=== PATIENT | female | born 1985 | race Caucasian/White ===

== ENCOUNTER 2019-09-17 13:41 | Emergency (ER) | payer OTHER, SELFPAY ==
[2019-09-17 13:50] VITALS: BP 119/76; PULSE 78; RESP 20; TEMP 36.3; O2SAT 98
--- NOTE | 2019-09-17 14:00 | ED.GENADULT ---
HPI - General Adult General Chief complaint: Ear Stated complaint: Right Ear Pain Time Seen by Provider: 09/17/19 14:00 Source: patient and RN notes reviewed Mode of arrival: ambulatory Limitations: no limitations History of Present Illness HPI narrative: 34-year-old female presents to [facility] care with complaints of pain to her right ear since Tuesday along with some discomfort to the right side of her face. Patient denies any fevers chills or sweats, denies any sore throat nasal congestion or cough. Patient states throbbing type of pain to her right ear radiating into her neck denies any drainage from the right ear. Patient states that she put some peroxide in her right ear. MD complaint: ear pain right ear Onset (ago): day(s) (3) Location: head (Ears) and neck Radiation: neck Severity: severe Severity scale (1-10): 8 Quality: other (throbbing) Pain Consistency: constant Relieving factors: none Exacerbating factors: none Associated symptoms: other (radiation of pain to right neck) Treatments prior to arrival: other (peroxide in ear) Related Data Home Medications Medication Instructions Recorded Confirmed omeprazole 40 mg PO DAILY 09/17/19 09/17/19 topiramate 25 mg PO BID PRN 09/17/19 09/17/19 Allergies Allergy/AdvReac Type Severity Reaction Status Date / Time morphine Allergy Intermediate Rash Verified 09/17/19 14:18 naproxen AdvReac Intermediate Nausea and Verified 09/17/19 14:18 Vomiting Review of Systems Review of Systems: Narrative: CONSTITUTIONAL: Denies fever, chills, or sweats. EYES: Denies visual changes, redness, or discharge. ENT: Denies rhinorrhea, congestion, sore throat, positive right ear otalgia. CARDIOVASCULAR: Denies chest pain, palpitations, or edema. RESPIRATORY: Denies cough or dyspnea. GASTROINTESTINAL: Denies abdominal pain, nausea, vomiting, or diarrhea. GENITOURINARY: Denies dysuria or hematuria. SKIN: Denies rash or itching. MUSCULOSKELETAL: Denies back pain, joint pain, or myalgia. NEUROLOGIC: Denies headache, numbness, or weakness. PSYCHIATRIC: Denies anxiety or depression. All systems reviewed & are unremarkable except as noted in HPI and below PMFSH Past Medical History Medical History (Updated 09/19/19 @ 15:30 by Jennifer Valadez NP) Gastric ulcer Migraines Surgical History Surgical History (Updated 09/17/19 @ 14:26 by Jennifer Valadez NP) History of hysterectomy for cancer History of tubal ligation Hx of cholecystectomy Social History Social History (Updated 09/17/19 @ 14:25 by Jennifer Valadez NP) Smoking status: Never smoker Living arrangements: with family Gender identity (if verbalized by the patient): Female Comments At time of signature, agree with nursing past medical, surgical, social history. There is no relevant family history pertinent to the presenting complaint Exam Narrative: Exam Narrative: GENERAL: Well-appearing, well-nourished, and in no acute distress. HEAD: Normocephalic, atraumatic. EYES: PERRLA and EOMI. ENT: Nares clear, no rhinorrhea or epistaxis. Mucous membranes moist.TM normal right ear with good light reflex, ear canal red and swollen with no drainage noted, left TM normal with good light reflex, throat pink no pain or redness. NECK: Supple.no lymphadenopathy CHEST: Clear to auscultation. No respiratory distress.KARYN@ 98% on room air. HEART: Regular rate and rhythm. No murmur heard. Normal peripheral pulses. ABDOMEN: Soft, nontender, nondistended, normal active bowel sounds. EXTREMITIES: Normal range of motion. No edema. SKIN: Warm, dry, no rash. NEURO: No focal deficits. Alert and oriented x3. Course Vital Signs Vital signs: Vital Signs Temperature 36.3 C L 09/17/19 13:50 Pulse Rate 78 09/17/19 13:50 Respiratory Rate 20 09/17/19 13:50 Blood Pressure 119/76 09/17/19 13:50 Pulse Oximetry 98 09/17/19 13:50 Temperature 36.3 C L 09/17/19 13:50 Pulse Rate 78 09/17/19 13:50 Respiratory Rate
== END 2019-09-17 14:20 | disposition home or self-care (01) ==
PROVIDERS: Emergency Provider Registered Nurse
DX: H60.501 Unspecified acute noninfective otitis externa, right ear (principal); K21.9 Gastro-esophageal reflux disease without esophagitis; Z85.42 Personal history of malignant neoplasm of other parts of uterus
CPT/HCPCS: 99213; G0463

== ENCOUNTER 2020-03-06 16:10 | Emergency (ER) | payer OTHER, SELFPAY ==
[2020-03-06 16:15] VITALS: BP 137/74; PULSE 62; RESP 18; TEMP 36.8; O2SAT 100
--- NOTE | 2020-03-06 16:25 | ED.GENADULT ---
HPI - General Adult General Chief complaint: Eye Problems Stated complaint: left eye pain Time Seen by Provider: 03/06/20 16:30 Source: patient and RN notes reviewed Mode of arrival: ambulatory Limitations: no limitations History of Present Illness HPI narrative: 34-year-old female presents with complains of left eye pain, photophobia, and scratchy eye sensation to inner LT eye area, since she awaken this morning. Unknown injury. No treatment. Mild redness, no drainage. Symptoms worsening throughout the day. Exacerbating factor light. Relieving factors is closing eyes. Denies blurred vision, double vision, or pain of eye with movement. Denies wearing glasses or contact lenses, had Lasik eye surgery in 2014. The patient reports she have not been diagnosed with COVID-19. The patient reports she is not waiting for the results of a COVID-19 lab test. The patient reports she do not have fever, chills, weakness, fatigue, myalgia, or facial swelling. The patient reports she do not have a new or worsening cough or shortness of breath. Denies chest pain. The patient reports she do not have any rhinorrhea, congestion, sore throat, nausea, vomiting, abdominal pain, and diarrhea. Tolerating po intake well. Denies recent traveling. Denies concerns for COVID-19 or exposures been home with limited outdoor exposure except for essential household needs and return home. At this time, patient is not suspected of having COVID-19. Some parts of this dictation were generated by voice recognition software and may contain typographical and/or grammatical inaccuracies. Related Data Home Medications Medication Instructions Recorded Confirmed omeprazole 40 mg PO DAILY 09/17/19 03/06/20 topiramate 25 mg PO BID PRN 09/17/19 03/06/20 Allergies Allergy/AdvReac Type Severity Reaction Status Date / Time morphine Allergy Intermediate Rash Verified 03/06/20 16:24 naproxen AdvReac Intermediate Nausea and Verified 03/06/20 16:24 Vomiting Review of Systems Review of Systems: Narrative: CONSTITUTIONAL: Denies fever, chills, sweats. EYES: Denies visual changes. Complains of LT eye pain, photophobia, and scratchy eye sensation to inner LT eye area. Denies discharge. ENT: Denies rhinorrhea, congestion, sore throat, otalgia. CARDIOVASCULAR: Denies chest pain, palpitations, edema. RESPIRATORY: Denies dyspnea, wheezing, cough. GASTROINTESTINAL: Denies abdominal pain, nausea, vomiting, diarrhea. GENITOURINARY: Denies dysuria, hematuria, abnormal discharge. SKIN: Denies rash or itching. MUSCULOSKELETAL: Denies acute back pain, joint pain, or myalgia. NEUROLOGIC: Denies numbness or focal weakness. PSYCHIATRIC: Denies anxiety or depression. All systems reviewed & are unremarkable except as noted in HPI and below PMFSH Past Medical History Medical History (Updated 03/08/20 @ 19:20 by MANDEEP Manley) Anxiety Depression Gastric ulcer History of gastroesophageal reflux (GERD) Hypertension Migraines Post traumatic stress disorder (PTSD) Surgical History Surgical History (Updated 03/08/20 @ 19:18 by MANDEEP Manley) H/O unilateral oophorectomy History of hysterectomy for cancer History of tubal ligation Hx of cholecystectomy Hx of LASIK Family History Family History (Updated 03/08/20 @ 19:34 by MANDEEP Manley) Father Hx of migraines Brain tumor (benign) Mother Alive and well Grandparent Hypertension Social History Social History (Updated 03/08/20 @ 19:36 by MANDEEP Manley) Smoking status: Never smoker Tobacco type: cigarettes Second hand tobacco smoke exposure: No Alcohol intake: never Substance use: never Living arrangements: with family Occupation/Education: unemployed Gender identity (if verbalized by the patient): Female Sexual Orientation (if Verbalized by the Patient): Straight or Heterosexual Comments At time of signature, I have reviewed and agree with nursing
== END 2020-03-06 16:47 | disposition home or self-care (01) ==
PROVIDERS: Emergency Provider Nurse Practitioner Family; PCP Nurse Practitioner Family
DX: S05.02XA Injury of conjunctiva and corneal abrasion without foreign body, left eye, initial encounter (principal); X58.XXXA Exposure to other specified factors, initial encounter; K21.9 Gastro-esophageal reflux disease without esophagitis; I10 Essential (primary) hypertension; Z85.42 Personal history of malignant neoplasm of other parts of uterus; Z90.711 Acquired absence of uterus with remaining cervical stump
CPT/HCPCS: 99213; A9270; G0463

== ENCOUNTER 2020-03-11 19:16 | Emergency (ER) | payer OTHER, SELFPAY ==
--- NOTE | ~2020-03-11 | XR_ITS ---
EXAMINATION: XR wrist RT min 3V DATE: 03/11/2020 19:40 INDICATION: Right wrist injury. TECHNIQUE: 4 views of right wrist were obtained. COMPARISON: None. FINDINGS: Bone alignment is normal. No fracture. Joint spaces are well maintained. IMPRESSION: 1. Normal right wrist. Reviewed, dictated and finalized at location A. IMPRESSION: 1. Normal right wrist.
--- NOTE | ~2020-03-11 | XR_ITS ---
EXAMINATION: XR hand RT min 3V DATE: 03/11/2020 19:41 INDICATION: Right hand injury. TECHNIQUE: 3 views of right hand were obtained. COMPARISON: None. FINDINGS: Bone alignment is normal. No fracture. Joint spaces are well maintained. IMPRESSION: 1. Normal right hand. Reviewed, dictated and finalized at location A. IMPRESSION: 1. Normal right hand.
[2020-03-11 19:20] VITALS: BP 137/67; PULSE 60; RESP 20; TEMP 36.7; O2SAT 100
--- NOTE | 2020-03-11 19:24 | ED.UPPEXIN ---
HPI - Extremity Injury (Upper) General Chief Complaint: Extremity Injury, Upper Stated Complaint: right hand fingers injury Time Seen by Provider: 03/11/20 19:24 Source: patient and RN notes reviewed History of Present Illness HPI narrative: Patient is a 34-year-old female who presents the urgent care with complaints of right arm/hand pain. Patient states that approximately 130 this afternoon a trailer fell onto her right arm/hand and has been causing her pain since then. Patient states that she has been elevating and icing but has had increased pain since the incident. Denies any use of [id number] medication for the pain. No other acute complaints or injuries. No acute distress noted. Patient aware of the plan of care. Some parts of this dictation were generated by voice recognition software and may contain typographical and/or grammatical inaccuracies. Related Data Home Medications Medication Instructions Recorded Confirmed omeprazole 40 mg PO DAILY 09/17/19 03/06/20 topiramate 25 mg PO BID PRN 09/17/19 03/06/20 Allergies Allergy/AdvReac Type Severity Reaction Status Date / Time morphine Allergy Intermediate Rash Verified 03/11/20 19:37 naproxen AdvReac Intermediate Nausea and Verified 03/11/20 19:37 Vomiting Review of Systems Review of Systems: Narrative: CONSTITUTIONAL: Denies fever, chills, or sweats. EYES: Denies visual changes, redness, or discharge. ENT: Denies rhinorrhea, congestion, sore throat, or otalgia. CARDIOVASCULAR: Denies chest pain, palpitations, or edema. RESPIRATORY: Denies cough or dyspnea. GASTROINTESTINAL: Denies abdominal pain, nausea, vomiting, or diarrhea. GENITOURINARY: Denies dysuria or hematuria. SKIN: Denies rash or itching. MUSCULOSKELETAL: Reports of right lower arm and wrist pain NEUROLOGIC: Denies headache, numbness, or weakness. All other systems reviewed are negative, except as documented in HPI. [facility] Past Medical History Medical History (Updated 03/11/20 @ 19:46 by MANDEEP Lima) Anxiety Depression Gastric ulcer History of gastroesophageal reflux (GERD) Hypertension Migraines Post traumatic stress disorder (PTSD) Surgical History Surgical History (Updated 03/08/20 @ 19:18 by MANDEEP Manley) H/O unilateral oophorectomy History of hysterectomy for cancer History of tubal ligation Hx of cholecystectomy Hx of LASIK Family History Family History (Updated 03/08/20 @ 19:34 by MANDEEP Manley) Father Hx of migraines Brain tumor (benign) Mother Alive and well Grandparent Hypertension Social History Social History (Updated 03/08/20 @ 19:36 by MANDEEP Manley) Smoking status: Never smoker Tobacco type: cigarettes Second hand tobacco smoke exposure: No Alcohol intake: never Substance use: never Gender identity (if verbalized by the patient): Female Comments At the time of my signature, I reviewed and agree with the nursing past medical, surgical, social, and family history. There is no relevant family history pertinent to the patient complaint. Exam Narrative: Exam Narrative: GENERAL: This is a well-nourished, well-developed patient, in no apparent distress. HEAD: normocephalic, atraumatic. EYES: PERRL. Sclera clear/white. Vision is grossly intact. EARS: External ears normal NOSE: External nose normal with no obvious nasal discharge, nares without redness, no rhinorrhea. THROAT: Mucous membranes moist NECK: Neck supple, SKIN: warm, intact with no suspicious lesions or rash, good texture and turgor. NEURO: awake, alert, and oriented to person, place and time. There were no obvious focal neurologic abnormalities. EXTREMITIES: Mild swelling with possible deformity noted to the right distal radius with moderate surrounding tenderness and mild ecchymosis. Range of motion not tested due to pain. Positive strong right radial pulse with capillary refill less than 2 seconds. Course Vital Signs Vit
== END 2020-03-11 19:50 | disposition home or self-care (01) ==
PROVIDERS: Emergency Provider Nurse Practitioner Family; PCP Nurse Practitioner Family
DX: S60.221A Contusion of right hand, initial encounter (principal); W20.8XXA Other cause of strike by thrown, projected or falling object, initial encounter; S60.211A Contusion of right wrist, initial encounter; K21.9 Gastro-esophageal reflux disease without esophagitis; I10 Essential (primary) hypertension; Z85.42 Personal history of malignant neoplasm of other parts of uterus
CPT/HCPCS: 73110; 73130; 99213; G0463

== ENCOUNTER 2023-04-01 15:57 | Emergency (ER) | payer OTHER, SELFPAY ==
--- NOTE | ~2023-04-01 | XR_ITS ---
EXAMINATION: XR chest 2V DATE: 04/01/2023 16:28 INDICATION: Hypoxia TECHNIQUE: frontal and lateral views of the chest were obtained. COMPARISON: None FINDINGS: The lungs are clear with no focal airspace opacities, pulmonary edema, pleural effusion or pneumothor ax. The cardiomediastinal silhouette is normal. Pectus carinatum. Cholecystectomy clips in the right upper quadrant. Nonspecific bowel gas pattern with a few gas-filled but not frankly dilated loops of bowel in the upper abdomen. IMPRESSION: 1. No acute cardiopulmonary disease. Reviewed, dictated and finalized at location A.
--- NOTE | 2023-04-01 16:03 | ED.GENADULT ---
HPI - General Adult General Chief complaint: Nausea/Vomiting/Diarrhea Stated complaint: Cough,Vomitting,Diarrhea Source: patient and RN notes reviewed History of Present Illness HPI narrative: 37 yo F presents to urgent care with complaints of N/V/D x 2 days. Pt states she has been unable to keep anything down. Pt states this started on Tuesday night but the diarrhea started today. Pt also reporting a cough since she was hospitalized with [facility] 1 month ago. Pt states the cough got worse Tuesday as well. Pt states she has had lower O2 Sats since this episode a month ago. Reports subjective fevers at home. Reports normally having SOB and states they don't know what is going on with her lungs and her hypoxia. Denies any chest pain, abdominal pain, or dysuria. Pt did take her zofran for the first time at noon today. Related Data Home Medications Medication Instructions Recorded Confirmed omeprazole 40 mg capsule,delayed 40 mg PO DAILY 09/17/19 03/11/20 release topiramate 25 mg tablet 25 mg PO BID PRN Migraine Headache 09/17/19 03/11/20 albuterol sulfate 2.5 mg/3 mL mg 04/01/23 (0.083 %) solution for nebulization albuterol sulfate 90 mcg/actuation inhalation 04/01/23 aerosol inhaler benzonatate 200 mg capsule mg PO 04/01/23 buspirone 7.5 mg tablet mg 04/01/23 citalopram 20 mg tablet mg 04/01/23 fluticasone 250 mcg-salmeterol 50 inhalation 04/01/23 mcg/dose blistr powdr for inhalation (Advair Diskus) metoprolol succinate 25 mg mg PO 04/01/23 tablet,extended release 24 hr tiotropium bromide 2.5 inhalation 04/01/23 mcg/actuation mist for inhalation (Spiriva Respimat) triamcinolone acetonide 0.1 % applic topical 04/01/23 topical cream Allergies Allergy/AdvReac Type Severity Reaction Status Date / Time morphine Allergy Intermediate Rash Verified 04/01/23 15:59 naproxen AdvReac Intermediate Nausea and Verified 04/01/23 15:59 Vomiting Review of Systems Review of Systems: Pertinent positives and pertinent negatives per HPI. [facility] Past Medical History Medical History (Updated 04/01/23 @ 16:48 by Karie Romero APRN) Anxiety Depression Gastric ulcer History of gastroesophageal reflux (GERD) Hypertension Migraines Post traumatic stress disorder (PTSD) Surgical History Surgical History (Updated 03/08/20 @ 19:18 by MANDEEP Manley) H/O unilateral oophorectomy History of hysterectomy for cancer History of tubal ligation Hx of cholecystectomy Hx of LASIK Family History Family History (Updated 03/08/20 @ 19:34 by MANDEEP Manley) Father Hx of migraines Brain tumor (benign) Mother Alive and well Grandparent Hypertension Social History Social History (Updated 03/08/20 @ 19:36 by MANDEEP Manley) Smoking status: Never smoker Tobacco type: cigarettes Second hand tobacco smoke exposure: No Alcohol intake: never Substance use: never Living arrangements: with family Occupation/Education: unemployed Gender identity (if verbalized by the patient): Female Sexual Orientation (if Verbalized by the Patient): Straight or Heterosexual Comments At the time of my signature, I reviewed and agree with the nursing past medical, surgical, social, and family history. There is no relevant family history pertinent to the patient complaint. Exam Narrative: GENERAL: This is a well-nourished, well-developed patient, in no apparent distress. HEAD: normocephalic, atraumatic. EYES: Sclera clear/white. Vision is grossly intact. EARS: External ears normal, auditory canals clear and without drainage, TMs normal without perforation. Hearing grossly intact. NOSE: External nose normal with no obvious nasal discharge, nares without redness, no rhinorrhea. THROAT: Mucous membranes moist, posterior pharynx clear. NECK: Neck supple, non-tender without lymphadenopathy, masses or thyromegaly. CARDIOVASCULAR: Regular rate and rhythm without mur
[2023-04-01 16:10] VITALS: BP 131/82; PULSE 97; RESP 20; TEMP 36.4; O2SAT 92
== END 2023-04-01 16:54 | disposition home or self-care (01) ==
PROVIDERS: Emergency Provider Nurse Practitioner Family
DX: K52.9 Noninfective gastroenteritis and colitis, unspecified (principal); R05.9 Cough, unspecified; I10 Essential (primary) hypertension; Z79.899 Other long term (current) drug therapy
CPT/HCPCS: 71046; 99213; G0463

== ENCOUNTER 2024-07-11 15:34 | Emergency (ER) | payer OTHER, SELFPAY ==
--- NOTE | ~2024-07-11 | XR_ITS ---
EXAMINATION: XR chest 2V DATE: 07/11/2024 16:25 INDICATION: Cough. TECHNIQUE: Frontal and lateral views of the chest were obtained. COMPARISON: Chest 2 views 04/01/2023 FINDINGS: There is no pneumonia, pleural effusion, or pneumothorax. The heart size is normal. Pectus carinatum is noted. Surgical clips in the right upper quadrant are likely from cholecystectomy. IMPRESSION: 1. No acute cardiopulmonary disease. Reviewed, dictated and finalized at location A. DEBEADER
[2024-07-11 15:54] VITALS: BP 120/72; PULSE 52; RESP 16; TEMP 36.7; O2SAT 99
--- NOTE | 2024-07-11 16:16 | ED.URI ---
HPI - URI/Sore Throat General Chief Complaint: Upper Respiratory Infection Stated Complaint: Cough/Breathing Problems Time Seen by Provider: 07/11/24 16:16 Source: patient Mode of arrival: ambulatory Limitations: no limitations History of Present Illness HPI Narrative: 39 yo F With history of asthma and COPD presents with complaint of cough and shortness of breath for the past month. Has called her primary care physician who told her to go to urgent care or to the ER. Has asked her primary care physician to prescribe her steroids for her asthma and she refused. Patient using albuterol neb at home. Last neb was 10:00 a.m.. Patient well-appearing, no respiratory distress. All systems reviewed and negative except as noted above. Related Data Home Medications ?Medication ?Instructions ?Recorded ?Confirmed ?Last Taken ?Type omeprazole 40 mg capsule,delayed 40 mg PO DAILY 09/17/19 03/11/20 Unknown History release topiramate 25 mg tablet 25 mg PO BID PRN Migraine Headache 09/17/19 03/11/20 Unknown History albuterol sulfate 2.5 mg/3 mL mg 04/01/23 Unknown History (0.083 %) solution for nebulization albuterol sulfate 90 mcg/actuation inhalation 04/01/23 Unknown History aerosol inhaler benzonatate 200 mg capsule mg PO 04/01/23 Unknown History buspirone 7.5 mg tablet mg 04/01/23 Unknown History citalopram 20 mg tablet mg 04/01/23 Unknown History fluticasone 250 mcg-salmeterol 50 inhalation 04/01/23 Unknown History mcg/dose blistr powdr for inhalation (Advair Diskus) metoprolol succinate 25 mg mg PO 04/01/23 Unknown History tablet,extended release 24 hr tiotropium bromide 2.5 inhalation 04/01/23 Unknown History mcg/actuation mist for inhalation (Spiriva Respimat) triamcinolone acetonide 0.1 % applic topical 04/01/23 Unknown History topical cream Allergies Allergy/AdvReac Type Severity Reaction Status Date / Time morphine Allergy Intermediate Rash Verified 04/01/23 15:59 naproxen AdvReac Intermediate Nausea and Verified 04/01/23 15:59 Vomiting Review of Systems Review of Systems: CONSTITUTIONAL: Denies fever, chills, or sweats. EYES: Denies visual changes, redness, or discharge. ENT: Denies rhinorrhea, congestion, sore throat, or otalgia. CARDIOVASCULAR: Denies chest pain, palpitations, or edema. RESPIRATORY: Reports cough and dyspnea with exertion. GASTROINTESTINAL: Denies abdominal pain, nausea, vomiting, or diarrhea. GENITOURINARY: Denies dysuria or hematuria. SKIN: Denies rash or itching. MUSCULOSKELETAL: Denies back pain, joint pain, or myalgia. NEUROLOGIC: Denies headache, numbness, or weakness. PSYCHIATRIC: Denies anxiety or depression. All other systems reviewed are negative, except as documented in HPI. [facility] Past Medical History Medical History (Updated 07/11/24 @ 17:13 by Rand Wood NP) Post traumatic stress disorder (PTSD) Depression Anxiety History of gastroesophageal reflux (GERD) Hypertension Migraines Gastric ulcer Surgical History Surgical History (Updated 03/08/20 @ 19:18 by MANDEEP Manley) Hx of LASIK H/O unilateral oophorectomy History of tubal ligation History of hysterectomy for cancer Hx of cholecystectomy Family History Family History (Updated 03/08/20 @ 19:34 by MANDEEP Manley) Father Hx of migraines Brain tumor (benign) Mother Alive and well Grandparent Hypertension Social History Social History (Updated 03/08/20 @ 19:36 by MANDEEP Manley) Smoking status: Never smoker Tobacco type: cigarettes Second hand tobacco smoke exposure: No Alcohol intake: never Substance use: never Living arrangements: with family Occupation/Education: unemployed Gender identity (if verbalized by the patient): Female Sexual Orientation (if Verbalized by the Patient): Straight or Heterosexual Comments At time of signature, agree with nursing past medical, surgical, social and family history. There is no relevant family history pertinent to the presenting complaint. Exam Narrative: GENERAL: This is a well-nourished, well-developed patient, Ill-appearing but no acute distress HEAD: normocephalic, atraumatic. EYES: PERRL. Sclera clear/white. Vision is grossly intact. EARS: External ears normal, auditory canals clear and without drainage, TMs normal without perforation. Hearing grossly intact. NOSE: External nose normal with no obvious nasal discharge, nares without redness, no rhinorrhea. THROAT: Mucous membranes moist, posterior pharynx clear. NECK: Neck supple, non-tender without lymphadenopathy, masses or thyromegaly. CARDIOVASCULAR: Regular rate and rhythm without murmurs, gallops, or rubs. RESPIRATORY: tight, decreased throughout all lung sullivan, mild expiratory wheeze to bilateral lower lung sullivan on expiration. No rales, or rhonchi. GASTROINTESTINAL: Abdomen soft, non-tender, nondistended. Bowel sounds are active. No hepato-splenomegaly, or palpable masses. No guarding. SKIN: warm, Dry, intact with no suspicious lesions or rash, good texture and turgor. NEURO: awake, alert, and oriented to person, place and time. There were no obvious focal neurologic abnormalities. EXTREMITIES: No joint tenderness, effusion, or edema noted. Course Course Level of Care: Express Care Visit Reevaluation(s) Reevaluation #1: Coarse throughout all lung sullivan on expiration, increased movement of air. Continues to have no respiratory distress. Vital Signs Vital signs: Vital Signs Temperature 36.7 C 07/11/24 15:54 Pulse Rate 52 L 07/11/24 15:54 Respiratory Rate 16 07/11/24 15:54 Blood Pressure 120/72 07/11/24 15:54 Pulse Oximetry 99 07/11/24 15:54 Oxygen Delivery Room Air 07/11/24 15:54 Temperature 36.7 C 07/11/24 15:54 Pulse Rate 52 L 07/11/24 15:54 Respiratory Rate 16 07/11/24 15:54 Blood Pressure 120/72 07/11/24 15:54 Pulse Oximetry 99 07/11/24 15:54 Oxygen Delivery Room Air 07/11/24 15:54 reviewed MDM - URI/Sore Throat MDM Narrative Medical decision making narrative: chest x-ray negative for pneumonia. Will prescribe prednisone for asthma exacerbation. Recommend patient increase use of albuterol neb to every 4-6 hours to treat her symptoms. Recommend she go to the ER for any worsening of her symptoms. Patient is aware of diagnosis, understands and agrees to treatment plan. Anticipatory guidance given. Patient agrees to follow-up as directed and is aware of reasons to seek care at the emergency department. Portions of this record may have been created with voice recognition software Discharge Plan Discharge Clinical Impression: Asthma exacerbation Patient Disposition: Elopement After Seen by Prov Condition: Stable Instructions: Asthma (ED) Additional Instructions: your chest x-ray was negative for pneumonia today. Start prednisone prescription tomorrow. Give your self and albuterol neb every 4-6 hours as needed for cough, wheezing, chest tightness, shortness of breath. Follow-up with your primary care physician at next available appointment. Go to the ER for any worsening of your symptoms. Patient Language: Kinyarwanda Prescriptions: New prednisone 20 mg tablet 40 mg PO DAILY 5 Days Qty: 10 0RF No Action topiramate 25 mg Tablet 25 mg PO BID PRN (Reason: Migraine Headache) omeprazole 40 mg Capsule,Delayed Release(Dr/Ec) 40 mg PO DAILY fluticasone propion-salmeterol [Advair Diskus] 250-50 mcg/dose blister with device INHALATION albuterol sulfate 2.5 mg /3 mL (0.083 %) solution for nebulization benzonatate 200 mg capsule PO triamcinolone acetonide 0.1 % cream TOPICAL citalopram 20 mg tablet buspirone 7.5 mg tablet metoprolol succinate 25 mg tablet extended release 24 hr PO albuterol sulfate 90 mcg/actuation HFA aerosol inhaler INHALATION Spiriva Respimat 2.5 mcg/actuation mist INHALATION methylprednisolone [Medrol (Main)] 4 mg tablets,dose pack 4 mg PO .per dose pack Qty: 21 0RF Follow-up/Referrals: Delmar,Kacy Rasmussen APN [Primary Care Provider] - Time of Disposition: 17:13
[2024-07-11] MEDS: IPRATROPIUM 0.5 MG/ALBUTEROL SULFATE 2.5 MG AMPUL.NEB 3 ML INHALATION (16:50)
[2024-07-11] MEDS: predniSONE 20 MG TABLET 40 MG PO (16:51)
== END 2024-07-11 17:18 | disposition left against medical advice (07) ==
PROVIDERS: Emergency Provider Nurse Practitioner Family; PCP Nurse Practitioner Family
DX: J45.901 Unspecified asthma with (acute) exacerbation (principal); J44.9 Chronic obstructive pulmonary disease, unspecified; I10 Essential (primary) hypertension; K21.9 Gastro-esophageal reflux disease without esophagitis
CPT/HCPCS: 71046; 94640; 99213; G0463; J7512

== ENCOUNTER 2024-10-25 14:46 | Emergency (ER) | payer OTHER, SELFPAY ==
--- NOTE | ~2024-10-25 | XR_ITS ---
CHEST RADIOGRAPH, PA AND LATERAL CLINICAL HISTORY: cough and wheezing . COMPARISON: 07/11/2024 TECHNIQUE: PA and lateral views of the chest. FINDINGS The cardiomediastinal silhouette is enlarged, unchanged. No significant peribronchial thickening is appreciated. The lungs are clear. IMPRESSION: No focal infiltrate or effusion. Reviewed, dictated and finalized at location A.
[2024-10-25 15:02] VITALS: BP 135/69; PULSE 110; RESP 20; TEMP 36.4; O2SAT 96
--- OUTSIDE RECORDS SUMMARY | 2024-10-25 15:25 | XMS_ITS | Encounter Summary ---
Author Organization [facility] Address [address] [place] [address] Phone Care Team Providers Care Data Entry Supervisor Name Role Phone Tim Caroline JEREZ Unavailable Ralph Whitley DO Unavailable [phone] Kacy Jacobsen APRN, DREDGE OPERATOR SUPERVISOR Primary Care Provider [phone] Broderick Velasco MD Unavailable Reason for Visit * Reason Comments Medication Refill Encounter Details Date Type Department Care Team (Late st Contact Info) Description 05/24/2023 Refill [facility] - Pulmonology & Sleep Medicine [facility] [address] [place] [address] Broderick Velasco MD [address] [place] [address] Medication Refill Social History Tobacco Use Types Packs/Day Years Used Date Smoking Tobacco: Never Smokeless Tobacco: Never Alcohol Use Standard Drinks/Week Comments No 0 (1 standard drink = 0.6 oz pur e alcohol) PHQ-2 Answer Date Recorded PHQ-2 Score 0 03/07/2019 Sexually Active Control Partners Comments Yes Comments No Sex and Gender Information Value Date Recorded Sex Assigned at Not on file Legal Sex Female 10:43 PM CDT Gender Identity Not on file Sexual Orientation Not on file Occupation Industry Job Start Date Job End Date unemployed Not on file Not on file Not on file documented as of this encounter Miscellaneous Notes * Telephone Encounter - Eri Peralta RN - 05/25/2023 8:21 AM CST Medication ordered for up to 14 days. Refill not appropriate E OPERATOR documented in this encounter Plan of Treatment Not on file documented as of this encounter Visit Diagnoses Not on filedocumented in this encounter Additional Health Concerns Assessment Noted Time PHQ-9 Depression Total Score: 0 01/11/20 19 6:29 AM CDT documented as of this encounter Care Teams Data Entry Supervisor Relationship Specialty Start Date End Date Kacy Jacobsen APRN, CNP [address] [facility] [address] [place] [address] PCP - General Family Medicine 11/14/19 Caroline Dumont PA [address] [address] Adult Medicine 02/01/17 Ralph Whitley DO [address] [facility] [address] [place] [id number] Gastroenterology 05/25/16 Broderick Velasco MD [address] [place] [address] Consulting Physician Pulmonary Disease 03/08/23 documented as of this encounter
--- OUTSIDE RECORDS SUMMARY | 2024-10-25 15:25 | XMS_ITS ---
Care Plan - [facility] Created on: October 25, 2024 AYAH SEPULVEDA : 1985 Sex: Female Author Organization [facility] Address [address] [place] [id number] Phone Care Team Providers Care Medication Specialist Name Role Phone Unavailable Unavailable Unavailable
--- OUTSIDE RECORDS SUMMARY | 2024-10-25 15:25 | XMS_ITS | Clinical Summary ---
Author Organization [facility] Address [address] [place] [address] Phone Care Team Providers Care Odd Jobs Day Worker Name Role Phone Unavailable Unavailable Unavailable Reason for Visit and Chief Complaint PROCEDURE OFFICE Plan of Treatment No Plan of Treatment Recorded Assessments Includes: Assessments from this encounter No Assessments Recorded Medical Equipment - Implanted Devices Includes: Current Devices No Medical Equipment Recorded Medications Administered Includes: Administered Medications from this encounter No Administered Medications Recorded Results Includes: Results discussed during this encounter No Results Recorded For Specified Dates History of Present Illness Includes: History of Present Illness from this encounter No History of Present Illness Recorded Social History No Social History Recorded - Smoking Status Unknown Medical History Includes: Medical History addressed during this encounter No Medical History Recorded Family History Includes: Family History addressed during this encounter No Family History Recorded Review of Systems Includes: Review of Systems from this encounter No Review of Systems Recorded Mental Status Includes: Mental Status from this encounter No Mental Status Recorded Functional Status Includes: Functional Status from this encounter No Functional Status Recorded Physical Exam Includes: Physical Exam from this encounter No Physical Exam Recorded Encounters Encounter Provider Location Date Check-In Time Check-Out Time Diagnosis PROCEDURE OFFICE FABIOLA LAYNE [facility] DOCUMENT PREPARER MICROFILMING 5 9:41AM 2:21PM Clinical Notes Includes: Clinical Notes from this encounter No Clinical Notes Recorded
--- OUTSIDE RECORDS SUMMARY | 2024-10-25 15:25 | XMS_ITS | Clinical Summary ---
Author Organization [facility] Address [address] [place] [address] Phone Care Team Providers Care Sustainability Specialist Name Role Phone Unavailable Unavailable Unavailable Reason for Visit and Chief Complaint NEW TECHNICAL DELIVERY MANAGER EXAM Plan of Treatment No Plan of Treatment [...] Encounters Encounter Provider Location Date Check-In Time Check- Out Time Diagnosis NEW TECHNICAL DELIVERY MANAGER EXAM FABIOLA LAYNE [facility] REIMBURSEMENT AUDITOR 5 9:18AM 12:06PM Clinical Notes Includes: Clinical Notes from this encounter No Clinical Notes Recorded
--- OUTSIDE RECORDS SUMMARY | 2024-10-25 15:25 | XMS_ITS | CONTINUITY OF CARE DOCUMENT ---
Author Name tee oliveira Address Unknown Organization [facility] Address [address] [place] [address] Phone [phone] Care Team Providers Care Aircraft Machinist Name Role Phone Cici Rosen MD Unavailable JACINTO ANALYSIS EVALUATOR-C, MICHAEL Unavailable JACINTO ANALYSIS EVALUATOR-C, MICHAEL Unavailable PROBLEMS Condition Status Date Provider Notes HTN essential active Cici Rosen MD Obesity active Cici Rosen MD Abdominal pain- partial hyst erectomy and right oophrectomy active Cici Rosen MD Chest discomfort- hx of GERD and peptic ulcer disease active Cici Rosen MD Shortness of breath--Echo EF 60%, 06/2022 active 08/25 Cici Rosen MD Dizziness, 30 day telesentry monitor showed no arrhythmias active Cici Rosen MD Wheezing active Roger Nachtanesha Bradycardia active Roger Sanchez VALDEZ--mild, on CPAP active Cici Rosen MD Exposure to COVID-19 coronavirus - May 2022 active 08/25/08 Cici Rosen MD Palpitations active Cici Rosen MD Near Syncope active Cici Rosen MD ENCOUNTERS Date Type Provider Location Encounter Diag nosis - In-person encounter Office Visit Cici Rosen MD [facility] Shortness of breath--Echo EF 60%, alpitations - In-person encounter Office Visit Cici Rosen MD [facility] VALDEZ--mild, on CPAPNear SyncopeExposure to COVID-19 coronavirus - May 2022 - In-person encounter Office Visit Cici Rosen MD [facility] VALDEZ--mild, on CPAP - In-person encounter Office Visit Cici Rosen MD [facility] WheezingBradycardia - In-person encounter Office Visit Cici Rosen MD [facility] - In-person encounter Office Visit Cici Rosen MD [facility] Chest discomfort- hx of GERD and peptic ulcer disease - In-person encounter Office Visit Cici Rosen MD [facility] Dizziness, 30 day telesentry monitor showed no arrhythmias - In-person encounter Office Visit Cici Rosen MD [facility] - In-person encounter Office Visit Cici Rosen MD [facility] HTN essentialObesityAbdominal pain- partial hysterectomy and right oophrectomyChest discomfort- hx of GERD and peptic ulcer diseaseShortness of breath--Echo EF 60%, izziness, 30 day telesentry monitor showed no arrhythmias VITAL SIGNS Date Observation Value Provider Body Mass Index (Ratio) 39.50 kg/m2 Pablo Rosen MD blood pressure, diastolic 82 mm[Hg] Loraine Barragan blood pressure, systolic 126 mm[Hg] [facility] piter Barragan oxygen saturation, oximetry 95 % Lara Barragan pulse rate 77 /min Lara youssef respiratory rate E&M 16 /min Funmi Barragan blood pressure, cuff size large Loraine Barragan weight E&M 223 [lb_av] Lara youssef height E&M 63 [in_i] Lara youssef Body Mass Index (Ratio) 39.14 kg/m2 Pablo Rosen MD blood pressure, cuff size large Ri quentin Silva blood pressure, diastolic 82 mm[Hg] Ri quentin Silva blood pressure, systolic 111 mm[Hg] Tobi Silva oxygen saturation, oximetry 94 % Idania Silva respiratory rate E&M 16 /min Bear Silva pulse rate 55 /min Idania Rodas son weight E&M 221 [lb_av] Idania Rodas son height E&M 63 [in_i] Idania Rodas son Body Mass Index (Ratio) 39.85 kg/m2 Pablo Rosen MD blood pressure, diastolic 77 mm[Hg] Sa ra Sanford blood pressure, systolic 119 mm[Hg] Sandra a Sanford oxygen saturation, oximetry 96 % Paula Sanford respiratory rate E&M 19 /min Paula Si ms pulse rate 58 /min Paula Sanford blood pressure, cuff size regular Sa ra Sanford weight E&M 225 [lb_av] Paula Sanford height E&M 63 [in_i] Paula Sanford Body Mass Index (Ratio) 40.03 kg/m2 Pablo Rosen MD blood pressure, diastolic 73 mm[Hg] Sa ra Sanford blood pressure, systolic 106 mm[Hg] Sandra a Sanford oxygen saturation, oximetry 92 % Paula Sanford respiratory rate E&M 20 /min Paula Si ms pulse rate 68 /min Paula Sanford blood pressure, cuff size regular Sa ra Sanford weight E&M 226 [lb_av] Paula Sanford height E&M 63 [in_i] Paula Sanford Body Mass Index (Ratio) 36.66 kg/m2 Pablo Rosen MD blood pressure, diastolic 76 mm[Hg] Gege nkLogic blood pressure, systolic 126 mm[Hg] Mer kLogic blood pressure, cuff size regular Mandy Rocha blood pressure, diastolic 76 mm[Hg] Mandy Rocha blood pressure, systolic 126 mm[Hg] Loulou Rocha oxygen saturation, oximetry 99 % Sarah Rocha respiratory rate E&M 18 /min Joshua Rocha pulse rate 62 /min Sarah bah weight E&M 207 [lb_av] Sarah bah height E&M 63 [in_i] Sarah bah Body Mass Index (Ratio) 40.21 kg/m2 Pablo Rosen MD blood pressure, diastolic 70 mm[Hg] Er joel Stauffer blood pressure, systolic 110 mm[Hg] Farhana Stauffer oxygen saturation, oximetry 99 % Leah Stauffer pulse rate 62 /min Leah Trace Jernigan weight E&M 227 [lb_av] Leah Boland- Delon height E&M 63 [in_i] Leahjoel Jernigan Body Mass Index (Ratio) 37.37 kg/m2 Pablo Rosen MD blood pressure, cuff size regular Ke rri Floridalma blood pressure, diastolic 70 mm[Hg] Ke rri Floridalma blood pressure, systolic 114 mm[Hg] Marci Hedrick oxygen saturation, oximetry 98 % Ely Hedrick respiratory rate E&M 20 /min Ely smith pulse rate 67 /min Ely Kuhn lder weight E&M 211 [lb_av] Ely Kuhn lder height E&M 63 [in_i] Ely Kuhn lder Body Mass Index (Ratio) 37.51 kg/m2 Pablo Rosen MD blood pressure, diastolic 73 mm[Hg] Tomy brunsonSwathijas Churchill blood pressure, systolic 132 mm[Hg] Janene Krishna Churchill oxygen saturation, oximetry 97 % Eileen Churchill respiratory rate E&M 18 /min Srinivas Churchill pulse rate 73 /min Eileen Dietrich kirbykameron weight E&M 211.8 [lb_av] Eileen ashleyon height E&M 63 [in_i] Eileen Dietrich phuc Body Mass Index (Ratio) 38.26 kg/m2 Pablo Rosen MD blood pressure, diastolic 80 mm[Hg] Tomy neville O'Albert blood pressure, systolic 128 mm[Hg] Janene gaines O'Albert oxygen saturation, oximetry 98 % Natty O'Albert respiratory rate E&M 16 /min Natty O'Albert pulse rate 80 /min Natty O'Albert weight E&M 216 [lb_av] Natty O'Albert height E&M 63 [in_i] Natty O'Albert blood pressure, resting No Rac[place] stokes [facility] ALLERGIES Allergy Name Onset Date Reaction Criticality Status TOPAMAX Low Criticality active NAPROSYN Low Criticality active MORPHINE Low Criticality active RESULTS Date Observation Value Provider Reference Range Interpretation Location 3 ferritin, serum 115 ng/mL [facility] 15-150 3 iron saturation percent, serum 13 % [facility] 15-55 Low 3 iron, serum 44 ug/dL [facility] 27-159 3 iron binding capacity, unsaturated 300 ug/dL [facility] 691-884 8841/03/2 3 iron binding capacity, total 344 ug/dL [facility] 223-761 4313/03/2 3 lipoprotein, beta, serum, point, quantitative, calculated 101 mg/dL [facility] 0-99 High 3 very low density lipoproteins 39 mg/dL [facility] 5-40 3 HDL cholesterol, serum 39 mg/dL [facility] >39 Low 3 triglyceride, serum, random 197 mg/dL [facility] 0-149 High 3 cholesterol, serum 179 mg/dL [facility] 491-782 5324/03/2 3 basophil count, absolute 0.0 x10E3/uL [facility] 0.0-0.2 3 Eosinophil Absolute Count 0.2 X10E3/UL [facility] 0.0-0.4 3 monocyte count, blood, automated 0.5 X10E3/UL [facility] 0.1-0.9 3 lymphocyte count, blood, automated 2.2 X10E3/UL [facility] 0.7-3.1 3 Absolute Neutrophils 7.1 X10E3/UL [facility] 1.4-7.0 High 3 basophils as percent of blood leukocytes 0 % [facility] Not Estab. 3 eosinophils as percent of blood leukocytes 2 % [facility] Not Estab. 3 monocytes as percent of blood leukocytes 5 % [facility] Not Estab. 3 lymphocytes as percent of blood leukocytes 22 % [facility] Not Estab. 3 neutrophils as percent of blood leukocytes 71 % [facility] Not Estab. 3 platelet count 261 X10E3/UL [facility] 039-668 7934/03/2 3 red blood cell distribution width 14.2 % [facility] 12.3-15.4 3 mean corpuscular hemoglobin concentration, RBC 32.9 G/DL [facility] 31.5-35.7 3 mean corpuscular hemoglobin, RBC 27.6 pg [facility] 26.6-33.0 3 mean corpuscular volume, RBC 84 fL [facility] 79-97 3 hematocrit, blood 43.8 % [facility] 34.0-46.6 3 hemoglobin, blood 14.4 g/dL [facility] 11.1-15.9 3 erythrocyte (RBC) count 5.21 X10E6/UL [facility] 3.77-5.28 3 leukocyte count, blood 10.1 X10E3/UL [facility] 3.4-10.8 3 alanine aminotransferase (SGPT), serum 15 1/L [facility] 0-32 3 aspartate aminotransferase (SGOT), serum 17 1/L [facility] 0-40 3 alkaline phosphatase, serum 71 1/L [facility] 39-117 3 bilirubin, serum, total 0.4 mg/dL [facility] 0.0-1.2 3 albumin/globulin ratio, serum 1.0 [facility] 1.2-2.2 Low 3 globulin, serum 4.3 [facility] 1.5-4.5 3 albumin, serum 4.4 g/dL [facility] 3.5-5.5 3 protein, total, serum 8.7 g/dL [facility] 6.0-8.5 High 3 calcium, serum 9.9 mg/dL [facility] 8.7-10.2 3 carbon dioxide, venous blood 22 mmol/L [facility] 18-29 3 chloride, serum 100 mmol/L [facility] 96-106 3 potassium, serum 4.2 mmol/L [facility] 3.5-5.2 3 sodium, serum 140 mmol/L [facility] 748-754 5848/03/2 3 urea nitrogen/creatinine ratio, serum 18 [facility] 9-23 3 eGFR if 112 mL/min/{1 .73_m2} [facility] >59 3 eGFR if not 97 mL/min/{1 .73_m2} [facility] >59 3 creatinine, serum 0.80 mg/dL [facility] 0.57-1.00 3 urea nitrogen, blood 14 mg/dL [facility] 6-20 3 blood glucose, random 97 mg/dL [facility] 65-99 HISTORY OF MEDICATION USE Medication Status Instructions Dates Provider Indications Com ments Toprol XL 25 mg tablet extended release 24 hr active TAKE 1 TABLET BY MOUTH EVERY DAY Rand Ventimiglia DISTRIBUTION MANAGER Advair Diskus 250-50 mcg/dose blister with device active Rand Ventimiglia DISTRIBUTION MANAGER Symbicort 160-4.5 mcg/actuation HFA aerosol inhaler completed - Rand Ventimiglia DISTRIBUTION MANAGER phentermine 37.5 mg tablet completed Take 1 tablet by mouth once a day - Cici Rosen MD albuterol sulfate 90 mcg/actuation HFA aerosol inhaler active Paula Sanford buspirone 7.5 mg tablet active Arias Yeh dicyclomine 20 mg tablet completed - Cici Rosen MD citalopram 40 mg tablet active 1 tablet by mouth twice a day Sarah Rocha #30, 30 days supply, Prescribed by TERE TREJO, Filled 06/28/2018 topiramate 25 mg tablet completed Take 1 tablet by mouth twice a day - Roger Sanchez #60, 30 days supply, Prescribed by RAVEN MOORE, Filled 12/27/2018 sumatriptan succinate 25 mg tablet completed TAKE 1 TABLET BY MOUTH ONCE NEEDED FOR MIGRAINE FOR UP TO 1 DOSE. USE DIRECTED. MAY REPEAT DOSE IN 2 HOURS IF HEADACHE RECURS. - Roger Sanchez #9, 30 days supply, Prescribed by RAVEN MOORE, Filled 12/29/2018 omeprazole 40 mg capsule,delaye d release(/EC) active Take 1 capsule by mouth once a day Sarah Rocha #30, 30 days supply, Prescribed by VAL JACK, Filled 12/29/2018 famotidine 20 mg tablet completed Take 2 tablet by mouth twice a day - Rand Ventimiglia DISTRIBUTION MANAGER #120, 30 days supply, Prescribed by VAL JACK, Filled 12/29/2018 GABAPENTIN 300 MG ORAL CAPSULE completed one cap twice daily - Leah Stauffer SOCIAL HISTORY Date Observation Value Provider drug use no Rand Ventimig brennan DISTRIBUTION MANAGER alcohol use no Rand Ventimig brennan DISTRIBUTION MANAGER smoking status Never smoker Lara Dang and social history reviewed E&M revi ewed - no changes required Arias Yeh smoking status Never smoker Idania zamora social history reviewed E&M revi ewed - no changes required Arias Yeh social history reviewed E&M revi ewed - no changes required Roger Sanchez social history E&M S moking History: Audra cazares has never smoked. Roger Sanchez smoking status Never smoker Roger Sanchez social history reviewed E&M revi ewed - no changes required Arias Yeh social history E&M S moking History: Audra cazares has never smoked. Cici Rosen MD smoking status Never smoker Leah Man social history reviewed E&M revi ewed - no changes required Leah Stauffer social history E&M S moking History: Audra cazares has never smoked. Cici Rosen MD social history reviewed E&M revi ewed - no changes required Cici Rosen MD smoking status Never smoker Ely blanco number of grandchildren Cici Rosen MD T vania Rosen MD social history reviewed E&M revi ewed - no changes required Cici Rosen MD smoking status Never smoker Eileen Morales social history E&M S moking History: Audra cazares has never smoked. Cici Rosen MD social history reviewed E&M revi ewed - no changes required Cici Rosen MD smoking status Never smoker Natty Garcia FAMILY HISTORY Family Member Condition First Degree Blood Relative No Known Fam frank History INSURANCE PROVIDERS Payer name Policy type / Coverage type [place] [employer] [place] party ID AETNA [facility] Medicaid [id number] ADVANCE DIRECTIVES Name Date DISCUSSED - NO DECISION MADE TREATMENT PLAN Date Name Performer [id number],C,encouraged CP AP compliance Randjosh De Anda [facility] [id number],C,l ifestyle modification encouraged. will check hgb A1C and lytes Randjosh De Anda [facility] [id number],S,b lood pressure controlled in office today. She states DBP does run over 100 at times. Will add Toprol XL 25 mg a day for BP and palpirations H er updated medication list for this problem includes: Toprol Xl 25 Mg Tablet Extended Release 24 Hr (Metoprolol succinate) ..... Take 1 tablet by mouth every day Randjosh De Anda [facility] [id number],S,e tiology unclear. May be r/t anxiety or underlying lung issues and inhaler use. Monitor results and echo as noted above. Encouraged exercise and avoidance of caffeine. Will do labs to look for underlying causes. H er updated medication list for this problem includes: Toprol Xl 25 Mg Tablet Extended Release 24 Hr (Metoprolol succinate) ..... Take 1 tablet by mouth every day Orders: 9 9214 MOD 30-39min (CPT-37643) B ASIC METABOLIC PANEL W/EGFR (99031) C BC (INCLUDES DIFF/PLT) (5599) F ERRITIN (457) I CHER AND TOTAL IRON BINDING CAPACITY (7203) VITAMIN B12/FOLATE, SERUM PANEL (4409) V itamin D, 25-Hydroxy (415936) T SH, 3RD GENERATION W/REFLEX TO FT4 (26978) Randjosh De Anda [facility] [id number],S,s he has completed tele monitor which showed NSR with rare ventricular ectopies. EF 55% per echo with no significant valvular abnormalities. will do some labs to r/o any other underlying source Rand De Anda [facility] [id number],S, Arias Sarahmedza i [id number],S, Arias Kearamedza i [id number],S, Arias Kearamedza i [id number],S, Arias Kearamedza i [id number],S, Arias Kearamedza i [id number],S, Arias Kearamedza i [id number],S, Arias Kearamedza i [id number],S, Arias Ahmedza i [id number],S, Arias Sarahmedza i [id number],S, Arias Sarahmedza i Cardiology:encouraged CPAP compl linda Randjosh Sandrailia [facility] Cardiology:lifestyle modification encouraged. will check hgb A1C and lytes Randjosh De Anda [facility] Cardiology:blood pre ssure controlled in office today. She states DBP does run over 100 at times. Will add Toprol XL 25 mg a day for BP and palpirations H er updated medication list for this problem includes: Toprol Xl 25 Mg Tablet Extended Release 24 Hr (Metoprolol succinate) ..... Take 1 tablet by mouth every day Rand Sandraglilia [facility] Cardiology:etiology unclear. May be r/t anxiety or underlying lung issues and inhaler use. Monitor results and echo as noted above. Encouraged exercise and avoidance of caffeine. Will do labs to look for underlying causes. H er updated medication list for this problem includes: Toprol Xl 25 Mg Tablet Extended Release 24 Hr (Metoprolol succinate) ..... Take 1 tablet by mouth every day Orders: 9 9214 MOD 30-39min (CPT-69845) B ASIC METABOLIC PANEL W/EGFR (44597) C BC (INCLUDES DIFF/PLT) (6399) F ERRITIN (457) I CHER AND TOTAL IRON BINDING CAPACITY (7573) V ITAMIN B12/FOLATE, SERUM PANEL (7065) V itamin D, 25-Hydroxy (918014) T SH, 3RD GENERATION W/REFLEX TO FT4 (16162) Rand De Anda DISTRIBUTION MANAGER Cardiology:she has c ompleted tele monitor which showed NSR with rare ventricular ectopies. EF 55% per echo with no significant valvular abnormalities. will do some labs to r/o any other underlying source Randjosh Sandraglilia DISTRIBUTION MANAGER Cardiology Arias Ahmedzai Cardiology Arias Ahmedzai Cardiology Arias Ahmedzai Cardiology Arias Ahmedzai Cardiology Arias Ahmedzai Cardiology Arias Ahmedzai Cardiology Arias Ahmedzai Cardiology Arias Ahmedzai Cardiology Arias Ahmedzai Cardiology Arias Ahmedzai Cardiology Ccii Rosen MD Cardiology Cici Rosen MD Cardiology Cici Rosen MD Cardiology Cici Rosen MD Cardiology Follow up Cici hardy MD Cardiology Follow up Cici hardy MD Cardiology Follow up Cici hardy MD Cardiology Follow up Cici hardy MD Cardiology:Exercise advised. Rachid Rosen MD Cardiology Cici Rosen MD Cardiology Cici Rosen MD Cardiology Cici Rosen MD Cardiology Cici Rosen MD Cardiology Cici Rosen MD Date Name TSH, 3RD GENERATION W/REFLEX TO FT4 Vitamin D, 25-Hydrox y VITAMIN B12/FOLATE, SERUM PANEL IRON AND TOTAL IRON BINDING CAPACITY FERRITIN CBC (INCLUDES DIFF/P LT) BASIC METABOLIC PANE L W/EGFR Monitor - Telemetry (Mobile Cardiac) Complete Echo Sleep Study Home DLCO - 17591 FRC - 70065 FVC - 86908 CT, Coronary Calcium Score Monitor - Telemetry (Mobile Cardiac) Sleep Study Home Complete Echo Mobile Cardiac Tele CATECHOLAMINES, FRAC TIONATED, AND VMA, 24 HOUR URINE (WITHOUT CREATININE) Vitamin D, 25-Hydrox y CALCIUM TSH, 3RD GENERATION W/REFLEX TO FT4 IRON AND TOTAL IRON BINDING CAPACITY FERRITIN CBC (INCLUDES DIFF/P LT) LIPID PANEL COMPREHENSIVE METABO LIC PANEL, W/EGFR Renal Artery Duplex Complete Echo CATECHOLAMINES, FRAC TIONATED, AND VMA, 24 HOUR URINE (WITHOUT CREATININE) Vitamin D, 25-Hydrox y TSH, 3RD GENERATION W/REFLEX TO FT4 CALCIUM LIPID PANEL IRON AND TOTAL IRON BINDING CAPACITY FERRITIN CBC (INCLUDES DIFF/P LT) COMPREHENSIVE METABO LIC PANEL, W/EGFR HISTORY OF PROCEDURES Procedure Date Procedure Name Provider Procedure Notes S tatus Spirometry Cici Rosen MD completed FVC / MVV with bronchodilator - 54230 Cici Rosen MD completed BLOOD COUNT HEMOGLOBIN Cici Rosen MD completed FRC - 46034 Cici Rosen MD complete d SpO2 w/o 6min walk/titration Cici Rosen MD completed SVC - 24817 Cici Rosen MD complete d DLCO - 18372 Cici Rosen MD complet ed CT- Coronary CA score Cici Rosen MD completed EKG Cici Rosen MD completed EKG Cici Rosen MD completed Mobile Cardiac Telem etry - Tech Cici Rosen MD completed Mobile Cardiac Telem etry - Prof Cici Rosen MD completed
--- OUTSIDE RECORDS SUMMARY | 2024-10-25 15:25 | XMS_ITS | Clinical Summary ---
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
--- OUTSIDE RECORDS SUMMARY | 2024-10-25 15:25 | XMS_ITS | Clinical Summary ---
Author Organization [facility] Address [address] [place] [address] Care Team Providers Care Dean Of Graduate Studies Name Role Phone Caroline Dumont Primary Care Provider [phone] Source Comments [facility],non-owned Affiliates and Associated Physician Practices is amultiple site organization consisting of ambulatory clinics and hospital sitesin [place], [place], [place] and [place]. This disclosure is being madepursuant to the Care Everywhere program and may not contain all information available regarding this patient. Last updated 18.[facility] Allergies Active Allergy Reactions Criticality Noted Date Comments Morphine Rash Medium 09/29/2015 Naproxen Other Low 02/11/2017 Dizziness/lightheaded Polysorbate 80-Topiramate Other Low 09/29/2015 Loss of appetite Topiramate Dizziness Low Medications * Be aware that medications may not be up to date on this document. Alwaysverify current medications with the patient. gabapentin (NEURONTIN) 100 MG capsule Take 100 mg by mouth TID. 03/08/2017 Active ibuprofen (MOTRIN) 800 MG tablet 10/27/2017 Active ketorolac (TORADOL) 10 MG tablet 10/26/2017 Active diclofenac sodium EC (VOLTAREN) 75 MG tablet 03/30/2018 Active hydrALAZINE (APRESOLINE) 10 MG tablet 01/11/2018 Active traMADol (ULTRAM) 50 MG tablet 04/20/2018 Active citalopram (CELEXA) 40 MG tablet 06/28/2018 Active hydroCHLOROthiaz jonathon (HYDRODIURIL) 25 MG tablet 06/28/2018 Active Active Problems Problem Noted Date Diagnosed Date Unspecified disorder of synovium and tendon, lef t shoulder 02/11/2017 Migraine without aura and wi thout status migrainosus, not intractable 10/05/2015 Family History Medical History Relation Name Comments Brain Tumor Father Amblyopia Neg Hx Blindness Neg Hx Cataract Neg Hx Diabetes Neg Hx Glaucoma Neg Hx Macular Degeneration Neg Hx Retinal Detachment Neg Hx Strabismus Neg Hx Relation Name Status Comments Father Social History Tobacco Use Types Packs/Day Years Used Date Smoking Tobacco: Never Smokeless Tobacco: Never Alcohol Use Standard Drinks/Week Comments No 0 (1 standard drink = 0.6 oz pur e alcohol) Comments Unknown Sex and Gender Information Value Date Recorded Sex Assigned at Not on file Legal 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 Gender Identity Not on file Sexual Orientation Not on file Last Filed Vital Signs Vital Sign Reading Time Taken Comments Blood Pressure 133/90 02/12/2019 9:45 AM CDT Pulse 57 02/12/2019 9:45 AM CDT Temperature 36.4 C (97.6 F) 02/12/2019 9:45 AM CDT Respiratory Rate 18 02/12/2019 9:45 AM CDT Oxygen Saturation 100% 02/12/2019 9:45 AM CDT Inhaled Oxygen Concentration - - Weight 101.3 kg (223 lb 4.8 oz) 02/12/2019 9:45 AM CDT Height 160 cm (5' 3 ) 02/12/2019 9:45 AM CDT Body Mass Index 39.56 02/12/2019 9:45 AM CDT Plan of Treatment Health Maintenance Due Date Last Done Comments LIPID TESTING 1984 MAMMOGRAM 1984 HIV SCREENING 1999 HEPATITIS C SCREENING 04/27/2002 DTAP/TDAP/TD VACCINES (1 - Tdap) 2003 HEPATITIS B VACCINE (1 of 3 - 19+ 3-dose series) 2003 COVID-19 VACCINE ( - 2023-2 5 season) 2024 DEPRESSION SCREENING 06/27/2024 INFLUENZA VACCINE (Season Ended) 2025 03/31/20 15 ZOSTER VACCINE (1 of 2) 2034 HIB VACCINE Aged Out No longer eligi ble based on patient's age to complete this topic HPV VACCINE Aged Out No longer eligi ble based on patient's age to complete this topic MENINGOCOCCAL (Group B) VACC INE SHARED DECISION-MAKING Aged Out No longer eligibl e based on patient's age to complete this topic MENINGOCOCCAL GROUPS A/C/Y/W VACCINE Aged Out No longer eligible b ased on patient's age to complete this topic PNEUMOCOCCAL VACCINE Aged Out No long er eligible based on patient's age to complete this topic Insurance [facility] Care Teams Dean Of Graduate Studies Relationship Specialty Start Date End Date Caroline Dumont PA [address] [place] [id number] PCP - General 11/14/17
--- OUTSIDE RECORDS SUMMARY | 2024-10-25 15:25 | XMS_ITS | Clinical Summary ---
Author Organization [facility] [address] Address [address] [place] [address] Phone Care Team Providers Care Upsetter Name Role Phone DelmarJaviKacydangelo Hagan NP Primary Care Provider Allergies Active Allergy Reactions Criticality Noted Date Comments Morphine Itching,Rash Medium Naproxen Unknown Low 12/02/2015 Medications citalopram (CeleXA) 20 mg tablet 03/27/[address] (VOLTAREN) 75 mg EC tablet 03/30/2018 Active hydroCHLOROthiaz jonathon (MICROZIDE) 12.5 mg capsule 03/02/2018 Act yovana dicyclomine (BENTYL) 20 mg tablet Take 20 mg by mouth every 6 (six) hours Active OMEPRAZOLE, BULK, MISC Active topiramate (TOPAMAX) 50 mg tablet Take 50 mg by mouth 2 (two) times a day Active sucralfate (CARAFATE) suspension 1 gram/10 mL Take 1 g by mouth every 6 (six) hours 01/10/2019 Active SUMAtriptan (IMITREX) 25 mg tablet Take 25 mg by mouth daily as needed 05/30/2019 Active Active Problems Problem Noted Date Diagnosed Date Unspecified disorder of synovium and tendon, lef t shoulder 02/11/2017 Migraine without aura and wi thout status migrainosus, not intractable 10/05/2015 Tinnitus 08/01/2015 Vertigo 07/17/2015 Immunizations Immunization Administration Dates Next Due Influenza, Trivalent, IM (MDV) 03/31/2015 Surgical History Surgery Date Site/Laterality Comments SECTION 06/27/2008 - 06/26/2009 LASIK 06/27/2013 - 06/26/2014 LAPAROSCOPIC TOTAL HYSTERECTOMY 06/27/2014 - 06/26/2015 with BS, for menorrhagia, dysmenorrhea, pelvic pain LAPAROSCOPIC OOPHORECTOMY 06/27/2014 - 06/26/2015 Right RLQ pelvic pain: XIOMARA as well LAPAROSCOPIC CHOLECYSTECTOMY 06/27/2014 - 06/26/2015 CHOLECYSTECTOMY ORAL SURGERY all upper teeth (from [facility]) Medical History Medical History Date Comments Tension headache Migraine headache 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 Vertigo PTSD (post-traumatic stress disorder) Chronic pain Depression PTSD (post-traumatic stress disorder) Anxiety Chronic constipation Dysphagia GERD (gastroesophageal reflux disease) Family History Medical History Relation Name Comments Brain cancer Father Deep vein thrombosis Father DVT in [place] after extensive abdominal surgery Hypertension Father Deep vein thrombosis Father's Brother COD Diabetes Maternal Grandfather Diabetes Maternal Grandmother Migraines Mother Heart attack Paternal Grandfather Stroke Paternal Grandfather Heart attack Paternal Grandmother Relation Name Status Comments Father Father's Brother Maternal Grandfather Maternal Grandmother Mother Paternal Grandfather Paternal Grandmother Social History Tobacco Use Types Packs/Day Years Used Date Smoking Tobacco: Never Smokeless Tobacco: Never Tobacco Cessation:Counseling Given: Yes Alcohol Use Standard Drinks/Week Comments No 0 (1 standard drink = 0.6 oz pur e alcohol) Comments No Sex and Gender Information Value Date Recorded Sex Assigned at Not on file Legal Sex Female 5:08 PM SOCIAL SERVICES ASSISTANT Gender Identity Not on file Sexual Orientation Not on file 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 Not on file Not on file Not on file Obstetrics History Para Term AB IAB SAB Ectopic Multiple Livin g Live Births 1 1 1 0 0 0 0 0 0 1 1 Date Outcome GA Total Labor Labor/2nd/3rd Weight Sex Type Anes PTL Siobhan A1 A5 Name Clin Term Last Filed Vital Signs Vital Sign Reading Time Taken Comments Blood Pressure 134/75 11/30/2019 3:35 PM CDT Pulse 54 11/30/2019 3:35 PM CDT Temperature 37 C (98.6 F) 11/30/2019 2:22 PM CDT Respiratory Rate 21 11/30/2019 3:35 PM CDT Oxygen Saturation 99% 11/30/2019 3:35 PM CDT Inhaled Oxygen Concentration - - Weight 90.7 kg (200 lb) 11/30/2019 2:22 PM CDT Height 160 cm (5' 3 ) 11/22/2019 3:05 PM CDT Body Mass Index 35.43 11/22/2019 3:05 PM CDT Plan of Treatment Not on file Procedures Procedure Name Priority Date/Time Associated Diagnosis Comments THINPREP IMAGING PAP REFLEX HPV MRNA E6/E7 Routine 06/21/2013 1:30 PM SOCIAL SERVICES ASSISTANT from Last 3 Months or Most Recently Relevant to Health Maintenance Results * ThinPrep Imaging Pap Reflex HPV mRNA E6/E7 (06/21/2013 1:30 PM SOCIAL SERVICES ASSISTANT) SOURCE: SEE NOTE [facility] RESULTS Comment:Cervix, Endocervix CLINICAL INFORMATION: SEE NOTE [facility] RESULTS Comment:Normal exam LMP SEE NOTE [facility] RESULTS Comment:[id number] Previous Pap SEE NOTE [facility] Comment:Information not prov ided Prev. Bx SEE NOTE [facility]ULTS Comment:Information not prov ided Pap, specimen adequacy SEE NOTE [facility] RESULTS Comment: Satisfactory for evaluation. Endocervical/transformation zone component present. HPV interp SEE NOTE [facility] RESULTS Comment:Negative for intraep ithelial lesion or malignancy. Lactobacillus species SEE NOTE [facility] RESULTS Comment: This Pap test has been evaluated with computer assisted technology. Golf Ball Marker SEE NOTE [facility] RESULTS Comment: LMT, CT(ASCP) Test performed at [facility] [address] [address] Director: KRYSTYNA SCHWARTZ MD 06/21/2013 1:30 PM SOCIAL SERVICES ASSISTANT Luz Voss MD LAB PATHOLOGY ORDER COCO Final Result [facility] HISTORICAL RESULTS from Last 3 Months or Most Recently Relevant to Health Maintenance Insurance [facility] IDPA AETNA [facility] AETNA BETTER [facility] Advance Directives For more information, please contact: [phone] * Full Code (Latest Code Status on File) Date Activated Date Inactivated Comments 11/30/2019 2:04 PM 11/30/2019 8:15 PM Care Teams Upsetter Relationship Specialty Start Date End Date Kacy Jacobsen NP [address] [place] [address] PCP - General Nurse Practitioner 05/20/20
--- OUTSIDE RECORDS SUMMARY | 2024-10-25 15:25 | XMS_ITS ---
Author Organization [facility] Address [address] [place] [address] Phone Care Team Providers Care Spinning And Winding Supervisor Name Role Phone Unavailable Unavailable Unavailable Plan of Treatment No Plan of Treatment Recorded Assessments Includes: Assessments for all patient encounters No Assessments Recorded Medical Equipment - Implanted Devices Includes: Current and historical Devices No Medical Equipment Recorded Medications Administered Includes: Administered Medications in patient's chart No Administered Medications Recorded Results Includes: Results from 10/26/2023 through 10/25/2024 No Results Recorded For Specified Dates History of Present Illness History of Present Illness not supported for this document type No History of Present Illness Recorded Social History No Social History Recorded - Smoking Status Unknown Medical History Includes: Medical History in patient's chart No Medical History Recorded Family History Includes: Family History in patient's chart No Family History Recorded Review of Systems Review of Systems not supported for this document type No Review of Systems Recorded Mental Status No Mental Status Recorded Functional Status No Functional Status Recorded Physical Exam Physical Exam not supported for this document type No Physical Exam Recorded Clinical Notes Includes: Signed Clinical Notes starting from 07/16/2022 No Clinical Notes Recorded
--- OUTSIDE RECORDS SUMMARY | 2024-10-25 15:25 | XMS_ITS | Referral Summary ---
Author Organization [facility] [address] [employer] Address [address] [place] [address] Phone Care Team Providers Care Cabana Attendant Name Role Phone Delmar Kacydangelo Hagan NP Primary Care Provider [phone] Allergies Active Allergy Reactions Criticality Noted Date [...] Next Due Influenza, Trivalent, IM (MDV) 03/31/2015 Social History Tobacco Use Types Packs/Day Years Used Date Smoking Tobacco: Never Smokeless Tobacco: Never Tobacco Cessation:Counseling Given: Yes Alcohol Use Standard Drinks/Week Comments No 0 (1 standard drink = 0.6 oz pur e alcohol) Comments No Sex and Gender Information Value Date Recorded Sex Assigned at Not on file Legal Sex Female 5:08 PM ASSISTANT BRAND MANAGER Gender Identity Not on file Sexual Orientation Not on file 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 Police Aide SEE NOTE [facility]OR[facility] RESULTS Comment: LMT, CT(ASCP) Test performed at [id number] [address] Director: KRYSTYNA SCHWARTZ MD 06/21/2013 1:30 PM ASSISTANT BRAND MANAGER Luz Voss MD LAB PATHOLOGY ORDER COCO Final Result [facility] H[facility]OR[facility] RESULTS from Last 3 Months or Most Recently Relevant to Health Maintenance Insurance [facility] Advance Directives For more information, please contact: [phone] * Full Code (Latest Code Status on File) Date Activated Date Inactivated Comments 11/30/2019 2:04 PM 11/30/2019 8:15 PM Care Teams Cabana Attendant Relationship Specialty Start Date End Date Jacobsen, Kacy Hagan NP [address] [place] [address] PCP - General Nurse Practitioner 05/20/20
--- OUTSIDE RECORDS SUMMARY | 2024-10-25 15:25 | XMS_ITS | Clinical Summary ---
Author Organization [facility] Address [address] [place] [address] Phone Care Team Providers Care Special Needs Nanny Name Role Phone Caroline Dumont Unavailable Ralph Whitley DO Unavailable [phone] Kacy Jacobsen APRN, ABSTRACT CHECKER Primary Care Provider [phone] Broderick Velasco MD Unavailable Allergies Active Allergy Reactions Criticality Noted Date Comments Morphine Rash Medium 09/02/2015 Naproxen Sodium Other (see Comments) Low 02/11/2017 Dizziness/lightheaded Medications topiramate (TOPAMAX) 25 MG Tablet Start 1 tab by mouth every morning and 2 tablets at night. 90 Tab 3 9 Active Additional Information Patient not taking.Reported on 06/09/2023 SUMAtriptan (IMITREX) 25 MG Tablet Take 1 Tab by mouth once as needed for Migraine for up to 1 dose. Use as directed. May repeat dose in 2 hours if headache recurs. 9 Tab 3 9 Active Additional Information Patient not taking.Reported on 03/07/2023 Multiple Vitamin (MULTIVITAMIN PO) Take by mouth daily. Active citalopram (CeleXA) 10 MG Tablet TAKE 1 TABLET BY MOUTH ONCE DAILY 1 Active busPIRone HCl 7.5 MG Tablet Take 1 Tablet by mouth 2 times daily. 1 Active dicyclomine (BENTYL) 20 MG TabletIndicatio ns:Abdominal cramping Take 1 Tablet by mouth 3 times daily as needed for Other (pain). 90 Tablet 5 2 Active albuterol 108 (90 Base) MCG/ACT Aerosol Solution take 2 Puffs by inhalation every 4 hours as needed. Active metoprolol Succinate (TOPROL-XL) 25 MG TABLET SR 24 HR Take 25 mg by mouth daily. 3 Active fluticasone-promise meterol (ADVAIR) 250-50 MCG/ACT AEROSOL POWDER, BREATH ACTIVATED take 1 Puff by inhalation in the morning and at bedtime. Active fluticasone (FLONASE) 50 MCG/ACT Suspension 1-2 Sprays by Nasal route daily. Use in each nostril as directed. Active omeprazole (PriLOSEC) 40 MG CAPSULE DELAYED RELEASE Take 40 mg by mouth daily. Active triamcinolone (KENALOG) 0.1 % Cream Apply 2 times daily. Application Site: affected areas Active Spiriva Respimat 2.5 MCG/ACT Aerosol Solution INHALE 2 PUFFS BY MOUTH ONCE DAILY 3 Active albuterol (PROVENTIL, VENTOLIN) (2.5 MG/3ML) 0.083% Nebulizer Soln USE 1 VIAL IN NEBULIZER EVERY 6 HOURS NEEDED FOR 30 DAYS 3 Active Active Problems Problem Noted Date Diagnosed Date SOB (shortness of breath) 03/08/[address] 03/08/2023 Anxiety and depression 01/26/2023 Hypertension 01/26/2023 Irritable bowel syndrome with constipation 07/28 Gastroesophageal reflux disease 10/20/2020 Esophageal atresia 10/20/2020 Chronic superficial gastritis without bleeding 0 10/20/2020 Tachycardia 12/27/2018 Migraine without aura and wi thout status migrainosus, not intractable 09/27/2018 Class 3 severe obesity due t o excess calories without serious comorbidity with body mass index (BMI) of 40.0 to 44.9 in adult 09/27/2018 Tinnitus 08/01/2015 Vertigo 07/17/2015 Immunizations Immunization Administration Dates Next Due Influenza Vaccine greater than 3 yrs 03/31/2015 Influenza Vaccine, Quadrivalent, PF 2019,1 Influenza, Injectable, Quadrivalent 03/28,04/15/2020,03/27/2018,2016,07/20/2016 Influenza, Seasonal, Injecta ble, Undefined 03/31/2015 TDAP Vaccine 2019 Family History Medical History Relation Name Comments Other-comment Brother CAR ACCIDENT Heart Disease Father Other-comment Father brain tumor Heart Disease Maternal Aunt Colon Cancer Maternal Grandmother Liver Cancer Maternal Grandmother Lung Cancer Maternal Grandmother Uterine Cancer Maternal Grandmother High Cholesterol Mother Other-comment Mother FIBROMYALGIA Rheumatoid Arthritis Mother Heart Disease Paternal Aunt Heart Disease Paternal Grandfather Hypertension Paternal Uncle Relation Name Status Comments Brother Father Alive Maternal Aunt Maternal Grandmother Mother Alive Paternal Aunt Paternal Grandfather Paternal Uncle Social History Tobacco Use Types Packs/Day Years Used Date Smoking Tobacco: Never Smokeless Tobacco: Never Tobacco Cessation:Counseling Given: Not Answered Alcohol Use Standard Drinks/Week Comments No 0 [...] Sign Reading Time Taken Comments Blood Pressure 120/82 06/09/2023 10:52 AM SHIPPING AND RECEIVING ASSISTANT Pulse 72 06/09/2023 10:52 AM SHIPPING AND RECEIVING ASSISTANT Temperature 36.1 C (97 F) 06/09/2023 10:52 AM SHIPPING AND RECEIVING ASSISTANT Respiratory Rate 14 06/09/2023 10:5 2 AM SHIPPING AND RECEIVING ASSISTANT Oxygen Saturation 94% 06/09/2023 10: 52 AM SHIPPING AND RECEIVING ASSISTANT Inhaled Oxygen Concentration - - Weight 99.2 kg (218 lb 12.8 oz) 023 10:52 AM SHIPPING AND RECEIVING ASSISTANT Height 160 cm (5' 3 ) 06/09/2023 10:52 AM SHIPPING AND RECEIVING ASSISTANT Body Mass Index 38.76 06/09/2023 10:52 AM SHIPPING AND RECEIVING ASSISTANT Plan of Treatment Health Maintenance Due Date Last Done Comments Hepatitis C Virus (HCV) Screening 1984 Mammogram 1984 Hepatitis B Immunization (1 of 3 - 19+ 3-dose series) 2003 Influenza Immunization (#1) 02/26/202406/27, 07/07/2023, 04/27/2022, Additional history exists SARS-COV-2 Immunization ( season) 2024 06/17/2022, 07/31/2021, 07/10/2021 Discussion re Starting/Frequency of Mammograms 2024 Td Immunization Every 10 Years (Adults With 1 Tdap) 2029 2019 Respiratory Syncytial Virus (RSV) Immunization (Adult) (1 - 1-dose 75+ series) 2059 DTaP/Tdap/Td Immunization Discontinued 2019 Meningococcal Immunization (ACWY) Aged Out No longer eligible based on patient's age to complete this topic Pneumococcal Immunization Combined Aged Out No longer eligible based on patient's age to complete this topic Rotavirus Immunization Aged Out No lo nger eligible based on patient's age to complete this topic Medical Devices Implanted Type Area Steel Burner Device Identifier Shelf Expiration Date Model / Serial / Lot Arthrex 2.5 X 18 Mm Screw Implanted:Qty: 1 on 08/27/2020 by Manuel Lockett DPM at [facility] Right: Foot [employer] 09/23/2020 [id number] / [id number] / [id number] Insurance MEDICAID AETNA BETTER HEALTH Advance Directives * Full Code (Latest Code Status on File) Date Activated Date Inactivated Comments 01/26/2023 6:57 PM 01/28/2023 2:19 PM CPR-Full Treat ment: FULL ARREST: Attempt Resuscitation/CPR wit intubation and mechanical ventilation. PRE-ARREST: Use entire range of life support measures to stabilize the patient. Care Teams Special Needs Nanny Relationship Specialty Start Date End Date Kacy Jacobsen APRN, CNP [address] [facility] [address] [place] [address] PCP - General Family Medicine 11/14/19 Caroline Dumont PA [address] [address] Adult Medicine 02/01/17 Ralph Whitley DO [address] [address] Gastroenterology 05/25/16 Broderick Velasco MD [address] [place] [address] Consulting Physician Pulmonary Disease 03/08/23
--- OUTSIDE RECORDS SUMMARY | 2024-10-25 15:25 | XMS_ITS | Encounter Summary ---
Author Organization [facility] Address [address] [place] [address] Phone Care Team Providers Care Television Production Clerk Name Role Phone Caroline Dumont Unavailable Ralph Whitley DO Unavailable [phone] Kacy Jacobsen APRN, PAVER Primary Care Provider [phone] Broderick Velasco MD Unavailable Encounter Details Date Type Department Care Team (Late st Contact Info) Description 08/21/2020 [facility] Pre[facility] [address] [place] [id number] Manuel Lockett DPM [address] [place] [address] Pre-op testing (Primary Dx) Social History Tobacco Use Types Packs/Day Years Used Date Smoking Tobacco: Never Smokeless Tobacco: Never Alcohol Use Standard Drinks/Week Comments No 0 (1 standard drink = 0.6 oz pur e alcohol) PHQ-2 Answer Date Recorded PHQ-2 Score 0 03/07/2019 Sexually Active Control Partners Comments Never Comments No Sex and Gender Information Value Date Recorded Sex Assigned at Not on file Legal Sex Female 10:43 PM CDT Gender Identity Not on file Sexual Orientation Not on file Occupation Industry Job Start Date Job End Date unemployed Not on file Not on file Not on file COVID-19 Exposure Response Date Recorded In the last month, have you been in contact with someone who was confirmed or suspected to have Coronavirus / COVID-19? No / Unsure 08/24/2020 8:24 AM SHANK INSPECTOR documented as of this encounter Plan of Treatment Not on file documented as of this encounter Results * SARS-COV-2 BY MOLECULAR (08/24/2020 8:44 AM SHANK INSPECTOR) SARSCOV2 NOT DETECTED (Referen ce Range for this test is Not Detected ) [facility] THERMOFISHER FAST DX 08/25/2020 5:32 AM SHANK INSPECTOR [facility] Comment:This test was perfor med by a PCR method. Other NASOPHARYNGEAL STRUCTURE / Unknown Non-Phlebotomy Collection / Unknown 08/24/2020 8:44 AM SHANK INSPECTOR 08/24/2020 10:22 AM SHANK INSPECTOR Narrative [facility] - 08/25/2020 5:32 AM SHANK INSPECTOR Authorized Fact Sheets about this test for providers and patients are available at: https://www.fda.gov/medical-devices/alozgmgct-krzmflrmhg-wkiqgkh-devices/emergen cy-us e-authorizations Manuel Lockett DPM MICROBIOLOGY - GENERAL ORDERABLE S Final Result [facility] [address] [place] [address], documented in this encounter Visit Diagnoses Diagnosis Pre-op testing- Primary Preoperative examination, unspecified documented in this encounter Additional Health Concerns Infection Onset Date Last Indicated Resolved Time COVID - 19 01/26/2023 01/26/2023 01/27/2023 8:55 AM CDT Respiratory Rule Out - RPA 01/26/2023 01/26/2023 0 01/27/2023 3:33 PM CDT Assessment Noted Time PHQ-9 Depression Total Score: 0 01/11/20 19 6:29 AM CDT documented as of this encounter Care Teams Television Production Clerk Relationship Specialty Start Date End Date Jacobsen, Kacy, SPRAY DRY OPERATOR, PAVER [address] [place] [address] PCP - General Family Medicine 11/14/19 Caroline Dumont PA [address] [place], [place] [id number] Adult Medicine 02/01/17 Ralph Whitley DO [address] [place], [place] [id number] Gastroenterology 05/25/16 Broderick Velasco MD [address] [place] [address] Consulting Physician Pulmonary Disease 03/08/23 documented as of this encounter
--- OUTSIDE RECORDS SUMMARY | 2024-10-25 15:25 | XMS_ITS | CONTINUITY OF CARE DOCUMENT ---
Author Name tee oliveira Address Unknown Organization [facility] Address [address] [facility] [address] [place] [address] Phone [phone] Care Team Providers Care Herb Doctor Name Role Phone Cici Rosen MD Unavailable [phone] JACINTO TABLEMAN-C, MICHAEL Unavailable JACINTO TABLEMAN-C, MICHAEL Unavailable [phone] PROBLEMS Condition Status Date Provider Notes HTN [...] VALDEZ--mild, on CPAP active Cici Rosen MD Near Syncope active Cici Rosen MD Exposure to COVID-19 coronavirus - May 2022 active 08/25/08 Cici Rosen MD Palpitations active Cici Rosen MD ENCOUNTERS Date Type Provider Location Encounter Diag nosis - In-person encounter Office Visit Cici Rosen MD [facility] Shortness of breath--Echo EF 60%, alpitations - In-person encounter Office Visit Cici Rosen MD [facility] VALDEZ--mild, on CPAPNear SyncopeExposure to COVID-19 coronavirus - May 2022 - In-person encounter Office Visit Cici Rosen MD [facility] VALDEZ--mild, on CPAP - In-person encounter Office Visit Cici Rosen MD [facility] WheezingBradycardia - In-person encounter Office Visit Cici Rosen MD [facility] - In-person encounter Office Visit Cici Rosen MD [facility] Chest discomfort- hx of GERD and peptic ulcer disease - In-person encounter Office Visit Cici Rosen MD [facility] Dizziness, 30 day telesentry monitor showed no arrhythmias - In-person encounter Office Visit Cici Rosen MD [facility] - In-person encounter Office Visit Cici Rosen MD [facility] HTN essentialObesityAbdominal pain- partial hysterectomy and right oophrectomyChest discomfort- hx of GERD and peptic ulcer diseaseShortness of breath--Echo EF 60%, izziness, 30 day telesentry monitor showed no arrhythmias VITAL SIGNS Date Observation Value Provider Body Mass Index (Ratio) 39.50 kg/m2 Pablo Rosen MD blood pressure, diastolic 82 mm[Hg] Loraine Barragan blood pressure, systolic 126 mm[Hg] [facility] piter Barragan oxygen saturation, oximetry 95 % [...] [in_i] Natty O'Albert blood pressure, resting No [place] stokes O'Albert ALLERGIES Allergy Name Onset Date Reaction Criticality Status TOPAMAX Low Criticality active NAPROSYN Low Criticality active MORPHINE Low Criticality active RESULTS Date Observation Value Provider Reference Range Interpretation Location 3 ferritin, serum 115 ng/mL [facility] 15-150 3 iron saturation percent, serum 13 % [facility] 15-55 Low 3 iron, serum 44 ug/dL [facility] 27-159 3 iron binding capacity, unsaturated 300 ug/dL [facility] 801-352 6252/03/2 3 iron binding capacity, total 344 ug/dL [facility] 798-408 3166/03/2 3 lipoprotein, beta, serum, point, quantitative, calculated 101 mg/dL [facility] 0-99 High 3 very low density lipoproteins 39 mg/dL [facility] 5-40 3 HDL cholesterol, serum 39 mg/dL [facility] >39 Low 3 triglyceride, serum, random 197 mg/dL [facility] 0-149 High 3 cholesterol, serum 179 mg/dL [facility] 902-701 2949/03/2 3 basophil count, absolute 0.0 x10E3/uL [facility] [...] Estab. 3 platelet count 261 X10E3/UL [facility] 141-544 5973/03/2 3 red blood cell distribution width 14.2 [...] 3.5-5.2 3 sodium, serum 140 mmol/L [facility] 736-579 6911/03/2 3 urea nitrogen/creatinine ratio, serum 18 [facility] [...] TABLET BY MOUTH EVERY DAY Rand Ventimiglia [employer]VAS WORKER Advair Diskus 250-50 mcg/dose blister with device active Rand Ventimiglia [employer]VAS WORKER Symbicort 160-4.5 mcg/actuation HFA aerosol inhaler completed - Rand Ventimiglia [employer]VAS WORKER phentermine 37.5 mg tablet completed Take 1 [...] mouth twice a day - Rand Ventimiglia [employer] WORKER #120, 30 days supply, Prescribed by VAL JACK, Filled 12/29/2018 GABAPENTIN 300 MG ORAL CAPSULE completed one cap twice daily - Leah Stauffer SOCIAL HISTORY Date Observation Value Provider drug use no Rand Ventimig brennan [employer]VAS WORKER alcohol use no Rand Ventimig brennan [employer]VAS WORKER smoking status Never smoker Lara Dang and [...] moking History: Audra cazares has never smoked. iCci Rosen MD smoking status Never smoker Leah [...] Policy type / Coverage type [place] red republican ID [employer]ET[employer] [facility] Medicaid [id number] ADVANCE DIRECTIVES Name Date DISCUSSED - NO DECISION MADE TREATMENT PLAN Date Name Performer [id number],C,encouraged CP AP compliance Randjosh De Anda [facility] [id number],C,l ifestyle modification encouraged. will check hgb A1C and lytes Randjosh De Anda [facility] [id number],S,b lood pressure controlled in office today. She states DBP does run over 100 at times. Will add Toprol XL 25 mg a day for BP and palpirations H er updated medication list for this problem includes: Toprol Xl 25 Mg Tablet Extended Release 24 Hr (Metoprolol succinate) ..... Take 1 tablet by mouth every day Randjosh De Anda [facility] [id number],S,e tiology unclear. May be r/t anxiety or [...] every day Orders: 9 9214 MOD 30-39min (CPT-51426) B ASIC METABOLIC PANEL W/EGFR (90179) C BC (INCLUDES DIFF/PLT) (3499) F ERRITIN (457) I CHER AND TOTAL IRON BINDING CAPACITY (8360) VITAMIN B12/FOLATE, SERUM PANEL (0753) V itamin D, 25-Hydroxy (941777) T SH, 3RD GENERATION W/REFLEX TO FT4 (08214) Randjosh De Anda [facility] [id number],S,s he has completed tele monitor which showed NSR with rare ventricular ectopies. EF 55% per echo with no significant valvular abnormalities. will do some labs to r/o any other underlying source Rand De Anda [facility] [id number],S, Arias Sarahmedza i [id number],S, Arias Kearamedza i [id number],S, Arias Kearamedza i [id number],S, Arias Kearamedza i [id number],S, Arias Kearamedza i [id number],S, Arias Kearamedza i [id number],S, Arias Kearamedza i [id number],S, Arias Ahmedza i [id number],S, Arias Sarahmedza i [id number],S, Arias Sarahmedza i Cardiology:encouraged CPAP compl linda Randjosh Sandrailia [facility] Cardiology:lifestyle modification encouraged. will check hgb A1C and lytes Randjosh De Anda [facility] Cardiology:blood pre ssure controlled in office today. She states DBP does run over 100 at times. Will add Toprol XL 25 mg a day for BP and palpirations H er updated medication list for this problem includes: Toprol Xl 25 Mg Tablet Extended Release 24 Hr (Metoprolol succinate) ..... Take 1 tablet by mouth every day Rand Sandraglilia [facility] Cardiology:etiology unclear. May be r/t anxiety or [...] every day Orders: 9 9214 MOD 30-39min (CPT-95586) B ASIC METABOLIC PANEL W/EGFR (88571) C BC (INCLUDES DIFF/PLT) (6399) F ERRITIN (457) I CHER AND TOTAL IRON BINDING CAPACITY (7573) V ITAMIN B12/FOLATE, SERUM PANEL (7065) V itamin D, 25-Hydroxy (941134) T SH, 3RD GENERATION W/REFLEX TO FT4 (34484) Rand De Anda CANVAS WORKER Cardiology:she has c ompleted tele monitor which showed NSR with rare ventricular ectopies. EF 55% per echo with no significant valvular abnormalities. will do some labs to r/o any other underlying source Randjosh Sandraglilia CANVAS WORKER Cardiology Arias Ahmedzai Cardiology Arias Ahmedzai Cardiology Arias Ahmedzai Cardiology Arias Ahmedzai Cardiology Arias Ahmedzai Cardiology Arias Ahmedzai Cardiology Arias Ahmedzai Cardiology Arias Ahmedzai Cardiology Arias Ahmedzai Cardiology Arias Ahmedzai Cardiology Cici Rosen MD Cardiology Cici Rosen [...] Complete Echo Sleep Study Home DLCO - 28751 FRC - 35358 FVC - 15189 CT, Coronary Calcium Score Monitor - Telemetry [...] completed FVC / MVV with bronchodilator - 35635 Cici Rosen MD completed BLOOD COUNT HEMOGLOBIN Cici Rosen MD completed FRC - 54544 Cici Rosen MD complete d SpO2 w/o 6min walk/titration Ccii Rosen MD completed SVC - 91003 Cici Rosen MD complete d DLCO - 11397 Cici Rosen MD complet ed CT- Coronary CA score Cici Rosen MD completed EKG Cici Rosen MD completed EKG Cici Rosen MD completed Mobile Cardiac Telem etry - Tech Cici Rosen MD completed Mobile Cardiac Telem etry - Prof Cici Rosen MD completed
--- OUTSIDE RECORDS SUMMARY | 2024-10-25 15:25 | XMS_ITS ---
Author Organization [facility] Address [address] [place] [address] Phone Care Team Providers Care Seat Cover Maker Name Role Phone Unavailable Unavailable Unavailable Plan [...]
--- OUTSIDE RECORDS SUMMARY | 2024-10-25 15:26 | XMS_ITS ---
Care Plan - [facility] Created on: October 25, 2024 AYAH SEPULVEDA : 1985 Sex: Female Author Organization [facility] Address [address] [place] [id number] Phone Care Team Providers Care Manager Field Name Role Phone Unavailable Unavailable Unavailable
--- OUTSIDE RECORDS SUMMARY | 2024-10-25 15:26 | XMS_ITS | Clinical Summary ---
Author Organization [facility] Address [address] [place] [address] Phone Care Team Providers Care Astrophysics Teacher Name Role Phone Unavailable Unavailable Unavailable Reason for Visit and Chief Complaint NEW PELLETIZER TENDER EXAM Plan of Treatment No Plan of [...] Check-In Time Check- Out Time Diagnosis NEW PELLETIZER TENDER EXAM FABIOLA LAYNE [facility] [employer]BIEE LEAD DEVELOPER 5 9:18AM 12:06PM Clinical Notes Includes: Clinical Notes from this encounter No Clinical Notes Recorded
--- NOTE | 2024-10-25 15:31 | ED.URI ---
HPI - URI/Sore Throat General Chief Complaint: Upper Respiratory Infection Stated Complaint: Cough/Sore Throat Time Seen by Provider: 10/25/24 15:20 Source: patient and RN notes reviewed Mode of arrival: ambulatory Limitations: no limitations History of Present Illness HPI Narrative: 3-year-old female presents Express Care complaining of cough for 2 months and upper respiratory symptoms for 2 weeks. Patient says she has a history of asthma, hypertension, and COPD. States she is a nonsmoker. She said she was seen here last month and was told she had asthma exacerbation was given a nebulizer treatment and a course of steroids. She stated it significantly helped with her symptoms. For the last 2 weeks she has no she has had congestion, sore throat, worsening cough, and wheezing. Patient uses her nebulizer at home routinely and says it does help with the wheezing. Patient is not follow-up with her PCP as she said that [place]. Patient denies any chest pain or difficulty breathing. Patient says her cough is dry and hacking. Patient says her cough is worse at night and keeps her up throughout the night daily. Patient says she sees a flight control manager for her lung problems. Related Data Home Medications ?Medication ?Instructions ?Recorded ?Confirmed ?Last Taken ?Type topiramate 25 mg tablet 25 mg PO BID PRN Migraine Headache 09/17/19 03/11/20 Unknown History albuterol sulfate 2.5 mg/3 mL mg 04/01/23 Unknown History (0.083 %) solution for nebulization albuterol sulfate 90 mcg/actuation inhalation 04/01/23 Unknown History aerosol inhaler fluticasone 250 mcg-salmeterol 50 inhalation 04/01/23 Unknown History mcg/dose blistr powdr for inhalation (Advair Diskus) metoprolol succinate 25 mg mg PO 04/01/23 Unknown History tablet,extended release 24 hr tiotropium bromide 2.5 inhalation 04/01/23 Unknown History mcg/actuation mist for inhalation (Spiriva Respimat) famotidine 20 mg tablet mg 10/25/24 Unknown History metoprolol succinate 50 mg mg PO 10/25/24 Unknown History tablet,extended release 24 hr Allergies Allergy/AdvReac Type Severity Reaction Status Date / Time morphine Allergy Intermediate Rash Verified 10/25/24 15:11 naproxen AdvReac Intermediate Nausea and Verified 10/25/24 15:11 Vomiting Review of Systems Review of Systems: CONSTITUTIONAL: Denies fever, chills, or sweats. EYES: Denies visual changes, redness, or discharge. ENT: Denies rhinorrhea, congestion, sore throat, or otalgia. CARDIOVASCULAR: Denies chest pain, palpitations, or edema. RESPIRATORY: Denies cough or dyspnea. GASTROINTESTINAL: Denies abdominal pain, nausea, vomiting, or diarrhea. GENITOURINARY: Denies dysuria or hematuria. SKIN: Denies rash or itching. MUSCULOSKELETAL: Denies back pain, joint pain, or myalgia. NEUROLOGIC: Denies headache, numbness, or weakness. PSYCHIATRIC: Denies anxiety or depression. All other systems reviewed are negative, except as documented in HPI. COUNT INCLUDES THE [facility] Past Medical History Medical History Post traumatic stress disorder (PTSD) Depression Anxiety History of gastroesophageal reflux (GERD) Hypertension Migraines Gastric ulcer Surgical History Surgical History Hx of LASIK H/O unilateral oophorectomy History of tubal ligation History of hysterectomy for cancer Hx of cholecystectomy Family History Family History Father Hx of migraines Brain tumor (benign) Mother Alive and well Grandparent Hypertension Social History Social History Smoking status: Never smoker Tobacco type: cigarettes Second hand tobacco smoke exposure: No Alcohol intake: never Substance use: never Living arrangements: with family Occupation/Education: unemployed Gender identity (if verbalized by the patient): Female Sexual Orientation (if Verbalized by the Patient): Straight or Heterosexual Comments At the time of my signature, I reviewed and agree with the nursing past medical, surgical, social, and family history. There is no relevant family history pertinent to the patient complaint. Exam Narrative: GENERAL: This is a well-nourished, well-developed adult, in no apparent distress. They are non ill-appearing, nontoxic appearing. HEAD: normocephalic, atraumatic. EYES: Sclera clear/white. Conjunctiva normal. Vision is grossly intact. Extraocular movements intact EARS: External ears normal, left auditory canal erythematous without drainage. Right auditory canal clear without swelling or redness or drainage. TMs normal without perforation. Hearing grossly intact. NOSE: External nose is red without swelling. no obvious nasal discharge, nasal turbinates erythematous bilaterally, no rhinorrhea. THROAT: Mucous membranes moist, posterior pharynx erythema without swelling. postnasal drip present. Uvula midline. No exudate NECK: Neck supple, non-tender without lymphadenopathy, masses or thyromegaly. CARDIOVASCULAR: Regular rate and rhythm without murmurs, gallops, or rubs. RESPIRATORY: Expiratory wheezing auscultated throughout the lungs bilaterally. Breath sounds equal bilaterally. Respiratory rate normal, respiratory effort nonlabored, no retractions or accessory muscle use, No respiratory distress. Patient is able to speak in full sentences. SKIN: warm, Dry, intact with no suspicious lesions or rash, good texture and turgor. NEURO: awake, alert, and oriented to person, place and time. There were no obvious focal neurologic abnormalities. EXTREMITIES: No joint tenderness, effusion, or edema noted. Course Course Emergency Course: After DuoNeb treatment patient wheezing significantly improved. No wheezing heard throughout the lungs during auscultation post treatment. Patient reports that she feels like her breathing has improved after the nebulizer treatment. Portions of this record may have been created with voice recognition software Level of Care: Express Care Visit Vital Signs Vital signs: Vital Signs Temperature 97.5 F L 10/25/24 15:02 Pulse Rate 110 H 10/25/24 15:02 Respiratory Rate 20 10/25/24 15:02 Blood Pressure 135/69 10/25/24 15:02 Pulse Oximetry 96 10/25/24 15:02 Oxygen Delivery Room Air 10/25/24 15:02 Temperature 97.5 F L 10/25/24 15:02 Pulse Rate 110 H 10/25/24 15:02 Respiratory Rate 20 10/25/24 15:02 Blood Pressure 135/69 10/25/24 15:02 Pulse Oximetry 96 10/25/24 15:02 Oxygen Delivery Room Air 10/25/24 15:02 Reviewed MDM - URI/Sore Throat MDM Narrative Medical decision making narrative: Chest x-ray was negative for any acute findings or pneumonia. Patient wheezing significantly improved after DuoNeb nebulizer treatment. Patient says she feels like her breathing is much better. Patient is not in respiratory distress, patient is able to speak in full sentences. Patient is stable for discharge. Given the length the upper respiratory symptoms it is likely that she has a bacterial sinusitis. Will treat her with Augmentin. Upon exam it appears the patient also has a left otitis externa. Will treat empirically with ofloxacin ear drops. Will also give patient a course of steroids for asthma exacerbation. Advised patient to follow-up with her PCP for further management of her asthma. Discussed physical exam findings. Advised supportive measures and signs/symptoms to go to the ER. Pt is appropriate for outpt treatment and f/u. Differential Diagnosis Differential diagnosis: Likely sinusitis and other (Otitis externa, asthma exacerbation,) Lab Data Labs: Lab Results 10/25/24 Range/Units 16:11 POC Grp A Strep Screen Negative (Negative) Imaging Data Radiologist's impression: ITS Impressions Chest X-Ray 10/25/24 16:01 IMPRESSION: No focal infiltrate or effusion. Critical Care Time Critical Care Time Critical Care Time: No Discharge Plan Discharge Clinical Impression: Sinusitis Qualifiers: Sinusitis location: unspecified location Chronicity: acute Recurrence: non-recurrent Qualified Code(s): J01.90 - Acute sinusitis, unspecified Asthma Qualifiers: Asthma severity: mild Asthma persistence: persistent Asthma complication type: with acute exacerbation Qualified Code(s): J45.31 - Mild persistent asthma with (acute) exacerbation Otitis externa Qualifiers: Otitis externa type: unspecified type Chronicity: acute Laterality: left Qualified Code(s): H60.502 - Unspecified acute noninfective otitis externa, left ear Patient Disposition: Home Condition: Stable Instructions: Antibiotic Form, Asthma (ED), Sinusitis (ED) Additional Instructions: Your rapid strep is negative. A throat culture will be sent off and evidence positive for strep he will be contacted.. Your chest x-ray was negative for any acute findings or pneumonia. Continue to use your inhaler and nebulizer as directed for your asthma. Take benzonatate as needed for cough. Take the Augmentin as directed and complete the course even if you start to feel better. Take the prednisone as directed, with food and in the morning. You may use a Neti pot saline rinse 3 times a day with lukewarm distilled water Continue to take Tylenol or Motrin for pain. Use a humidifier or vaporizer at night. Drink plenty of water. 8-10 glasses per day. Use flonase 2 times per day for 5 days then as needed Take mucinex 2 times per day and be sure to take with 8oz of water. Follow up with Primary provider if not getting better. Please go to the ER if you develops difficulty breathing, unable to speak in full sentences, constant wheezing, fevers, or any other concerns. Patient Language: Hungarian Prescriptions: New prednisone 20 mg tablet 40 mg PO DAILY 5 Days Qty: 10 0RF benzonatate 100 mg capsule 100 mg PO TID PRN (Reason: cough) Qty: 20 0RF amoxicillin-pot clavulanate 875-125 mg tablet 1 tablet PO Q12H 7 Days Qty: 14 0RF ofloxacin 0.3 % drops 10 drp LEFT EAR DAILY 7 Days Qty: 10 0RF No Action topiramate 25 mg Tablet 25 mg PO BID PRN (Reason: Migraine Headache) fluticasone propion-salmeterol [Advair Diskus] 250-50 mcg/dose blister with device INHALATION albuterol sulfate 2.5 mg /3 mL (0.083 %) solution for nebulization metoprolol succinate 25 mg tablet extended release 24 hr PO albuterol sulfate 90 mcg/actuation HFA aerosol inhaler INHALATION Spiriva Respimat 2.5 mcg/actuation mist INHALATION metoprolol succinate 50 mg tablet extended release 24 hr PO famotidine 20 mg tablet Follow-up/Referrals: Delmar,Kacy Rasmussen APN [Primary Care Provider] - Time of Disposition: 16:13
[2024-10-25] MEDS: IPRATROPIUM 0.5 MG/ALBUTEROL SULFATE 2.5 MG AMPUL.NEB 3 ML INHALATION (15:33)
[2024-10-25 16:12] LABS: EDSTREPNEGPOS1 Negative (Negative)
== END 2024-10-25 16:18 | disposition home or self-care (01) ==
PROVIDERS: PCP Nurse Practitioner Family
DX: J01.90 Acute sinusitis, unspecified (principal); J45.31 Mild persistent asthma with (acute) exacerbation; H60.502 Unspecified acute noninfective otitis externa, left ear; I10 Essential (primary) hypertension; K21.9 Gastro-esophageal reflux disease without esophagitis; J44.9 Chronic obstructive pulmonary disease, unspecified
CPT/HCPCS: 71046; 87081; 87880; 94640; 99213; G0463